=== PATIENT | female | born 1950 | race Caucasian/White ===

== ENCOUNTER 2019-08-16 10:57 | Day surgery (SDC) | payer MEDICARE, OTHER, SELFPAY ==
[2019-08-15 14:43] VITALS: BMI 34.8
--- NOTE | 2019-08-16 11:36 | ECG_ITS ---
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 [id number]
[2019-08-16 11:48] VITALS: BP 135/112; PULSE 94; RESP 20; TEMP 37.2; O2SAT 99
--- NOTE | 2019-08-16 11:49 | P.PN_ITS ---
Pre-Anesthetic Assessment Pre-Anesthetic Assessment: Height/Weight: Height 1.78 m Weight 110.223 kg Proposed Procedure: Operation Date: 08/16/19 12:00 Proposed Procedures p Cardioversion(Not Applicable) - Brian Santos MD Was Beta Fidel taken within 24 hours: Yes Last Intake: 09:00 Social: Social History: No alcohol and No tobacco Exam: Pre-Anes Outpt Exam: alert, oriented x 3, clear to auscultation bilaterally and regular rate & rhythm Airway: Submandibular: WNL Cervical ROM: WNL MP: 1 Dentition: Full History/ROS: No significant complaints Pulmonary: Pulmonary: SOB CV/HEM: CV/HEM: Afib, CHF and HTN : : Chronic renal Insufficiency Hepatic: Hepatic: None reported GI: GI: GERD (controlled) Metabolic: Metabolic: Hyperlipidemia Musc/skel: Musc/skel: OA/DJD Neuropsych: Neuropsych: None reported Anesthetic Plan: ASA status: III Anesthesia: MAC Risk of > 500 ml blood loss (7ml/kg in children): No PFSH Anesthesia PFSH: Social History Smoking and tobacco status: never smoked Alcohol intake: never Household members: spouse Marital status: Current gender identity: Female Isabel/Oriental [employer]: Other Data Anesthesia Cardiac Studies: No Data to Display
--- NOTE | 2019-08-16 11:57 | SUR.PREOP ---
12 lead EKG completed still showing A_Fib RVR
[2019-08-16] MEDS: sodium chloride 0.9% 1,000 ML 30 ML IV (12:11)
[2019-08-16 12:45] VITALS: BP 120/94; PULSE 91; RESP 18; TEMP 37.2; O2SAT 99
--- NOTE | 2019-08-16 12:48 | ANE.PACU ---
 Inpatient post-anesthesia follow up: Airway intact: Yes Vital signs: Temperature 99.0 F Pulse Rate [Right] 94 Respiratory Rate 20 Blood Pressure [Le ft Arm] 135/112 Pulse Oximetry 99 Oxygen Delivery Me thod Room Air Oxygen Flow Rate Fraction of Inspir ed Oxygen Hydration adequate: Yes Nausea and vomiting: No Pain level: 1 Mental status: Baseline
--- NOTE | 2019-08-16 12:59 | PM.PROC ---
 Procedure Note: Date of procedure: 08/16/19 Pre-procedure diagnosis: Atrial fibrillation Post-procedure diagnosis: same Procedure: Vilma has congenital heart disease and is had bypass surgery. She has struggled with recurrent atrial fibrillation. Multiple antiarrhythmics have been used to attempt to maintain sinus rhythm and have failed. She has had a ablation and this is also failed. She is very symptomatic. She is still on Betapace. We have had to adjust her beta-[place] upward to decrease her heart rate. She wanted to try cardioversion again to see if she could reestablish and maintain sinus rhythm. She was brought in electively today for cardioversion. Patient was monitored with oxygen saturation and EKG monitoring continuously. Anesthesiology was consulted for sedation. Once adequate anesthesia was secured, the patient was cardioverted once using 150 J with a biphasic machine. This converted her to sinus rhythm. At the end of the procedure she was in sinus rhythm with very frequent PACs. There were no complications. Patient has been advised to continue the medications as currently prescribed. She has an appointment with electrophysiology at the end of the month. She also has an appointment with us thereafter which she will keep. No driving a vehicle today. Otherwise activity is ad sergio. 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
[2019-08-16 13:00] VITALS: BP 126/90; PULSE 87; RESP 18; O2SAT 99
[2019-08-16 13:15] VITALS: BP 123/81; PULSE 88; RESP 18; O2SAT 98
== END 2019-08-16 14:15 | disposition home or self-care (01) ==
PROVIDERS: Family Provider Family Medicine; PCP Family Medicine; Visit Provider Internal Medicine Cardiovascular Disease
PROC: 5A2204Z Restoration of Cardiac Rhythm, Single (ICD-10-PCS; principal; 2019-08-16 12:00)
DX: I48.91 Unspecified atrial fibrillation (principal)
CPT/HCPCS: 36415; 92960; 93005; J2001; J2704; J7030

== ENCOUNTER 2019-09-05 10:35 | Outpatient (CLI) | payer MEDICARE, OTHER, SELFPAY ==
--- NOTE | 2019-09-05 | US_ITS ---
WS: [id number] RENAL ULTRASOUND HISTORY: ELEVATED SERUM CREATININE COMPARISON: 11/30/2018 and 02/28/2019 TECHNIQUE: 2-D and color Doppler imaging of the kidney submitted. Right kidney: 9.7 cm x 4.4 cm x 4.2 cm. Complex cyst centered in the central renal pelvis measuring 2.0 x 1.8 cm. There is a small septation or calcification present. Similar to the prior examination. No obstruction or solid mass. Left kidney: 9.2 cm x 4.6 cm x 3.8 cm. Normal echogenicity with no hydronephrosis or mass. Aorta: Normal. Urinary Bladder: Normal distention. US/US renal BI* [id number] IMPRESSION: Stable complex cyst central RIGHT kidney. No change since 11/30/2018. Recommend annual screening ultrasound.
== END 2019-09-05 10:36 | disposition home or self-care (01) ==
LOC: RADOUTREAD 12:00
PROVIDERS: Family Provider Family Medicine; PCP Family Medicine; Visit Provider Family Medicine
DX: Z76.89 Persons encountering health services in other specified circumstances (principal)

== ENCOUNTER 2019-10-16 15:56 | Outpatient (CLI) | payer MEDICARE, OTHER, SELFPAY ==
--- NOTE | 2019-10-16 16:04 | XR_ITS ---
WS: [id number] CHEST 2 VIEWS HISTORY: Shortness of breath COMPARISON: 02/04/2019. Inspiration and expiration radiographs are obtained. Lungs: Lucencies at the apices but no pneumothorax is identified. No pneumonia. Prior CABG. Cardiac size: Normal. Mediastinum/Aorta: Normal mediastinum. Bones: Normal. XR/XR chest 2V insp/exp [id number] IMPRESSION: Prior CABG. No pneumonia or pneumothorax.
== END 2019-10-16 15:57 | disposition home or self-care (01) ==
LOC: RADWPI 16:01
PROVIDERS: Family Provider Family Medicine; PCP Family Medicine; Visit Provider Internal Medicine Cardiovascular Disease
DX: R06.02 Shortness of breath (principal); Z95.1 Presence of aortocoronary bypass graft
CPT/HCPCS: 71046

== ENCOUNTER 2019-10-23 15:02 | Outpatient (CLI) | payer MEDICARE, OTHER, SELFPAY ==
--- NOTE | 2019-10-23 15:45 | USCV_ITS ---
Vilma Charlton Age: 69 Gender: F : 1950 Exam Date: 10/23/2019 15:22 Ordering Phys: Brian Santos MD ([email or web address]) Technologist: Kathya Turk [place]am [place] [facility] [place]ication: STATUS POST AFIB ABLATION WITH PROFOUND SOB. BP: 110 / 50 HR: 65 Rhythm: Sinus Technical Quality: Adequate MEASUREMENTS (Male / Female) Normal Values 2D ECHO LV Diastolic Diameter PLAX 4.5 cm 4.2 - 5.9 / 3.9 - 5.3 cm LV Systolic Diameter PLAX 3.5 cm IVS Diastolic Thickness 1.4 cm 0.6 - 1.0 / 0.6 - 0.9 cm IVS Systolic Thickness 1.8 cm LVPW Diastolic Thickness 1.1 cm 0.6 - 1.0 / 0.6 - 0.9 cm LVPW Systolic Thickness 1.4 cm LVOT Diameter 2.0 cm LV Ejection Fraction 2D Teich 45.4 % LV Ejection Fraction MOD 2C 53.2 % LV Ejection Fraction 2C AL 56.7 % LA Diameter 4.5 cm LA Width 3.9 cm LA Height 4.3 cm RA Width 3.2 cm RA Height 3.3 cm Aorta at Sinotubular Diameter 2.8 cm M-MODE LV Diastolic Diameter MM 4.7 cm 4.2 - 5.9 / 3.9 - 5.3 cm LV Systolic Diameter MM 2.9 cm LV Ejection Fraction MM Teich 69.1 % IVS Diastolic Thickness MM 1.1 cm 0.6 - 1.0 / 0.6 - 0.9 cm IVS Systolic Thickness MM 1.6 cm LVPW Diastolic Thickness MM 1.0 cm 0.6 - 1.0 / 0.6 - 0.9 cm LVPW Systolic Thickness MM 1.4 cm Aortic Annulus Diameter 2.9 cm LA Ao Ratio MM 1.6 MV E Point Septal Separation 0.8 cm DOPPLER AV Peak Velocity 85.0 cm/s LVOT Peak Velocity 62.0 cm/s AV Area Cont Eq vti 2.0 cm squared AV Area Cont Eq pk 2.4 cm squared MV Area PHT 3.9 cm squared MV E' Velocity 81.0 cm/s TV Peak E Velocity 80.0 cm/s Right Atrial Pressure 3.0 mmHg PV Peak Velocity 110.0 cm/s RV Acceleration Time 0.1 s RV Ejection Time 0.3 s RV AcT/ET 0.3 FINDINGS Left Ventricle Right Ventricle Normal right ventricular size and systolic function. Normal right ventricular size and systolic function, Right Atrium Normal right atrial size. Left Atrium Mildly increased left atrial size. Mitral Valve Mitral valve not well visualized. No mitral valve stenosis. Trace mitral valve regurgitation. Aortic Valve Structurally normal trileaflet aortic valve. No aortic valve stenosis. No aortic valve regurgitation. Tricuspid Valve Structurally normal tricuspid valve. Tricuspid valve not well visualized. No tricuspid valve regurgitation. Pulmonic Valve Pulmonic valve not well visualized. Pericardium No thickening/calcification of the pericardium. No pericardial or pleural effusion. Aorta Normal size aortic root and proximal ascending aorta. CONCLUSIONS Normal LV function with EF 55% No valvular stenosis or regurgitation No pericardial effusion Solomon Layne MD (Electronically Signed) Final Date: 23 October 2019 16:25 S
== END 2019-10-23 15:03 | disposition home or self-care (01) ==
LOC: RAD 15:07
PROVIDERS: Family Provider Family Medicine; PCP Family Medicine; Visit Provider Internal Medicine Cardiovascular Disease
DX: I34.0 Nonrheumatic mitral (valve) insufficiency (principal); I51.7 Cardiomegaly; R06.02 Shortness of breath; Z98.890 Other specified postprocedural states
CPT/HCPCS: 93306

== ENCOUNTER 2019-12-20 08:25 | Outpatient (CLI) | payer MEDICARE, OTHER, SELFPAY ==
--- NOTE | 2019-12-20 08:32 | FL_ITS ---
WS: [id number] Fluoroscopy; sniff test. Fluoroscopy time: 0.9 minutes. Evaluate for diaphragmatic motion. There is moderate elevation of the RIGHT hemidiaphragm as compared to the LEFT by the heights of 2 ve rtebral bodies. During normal breathing the RIGHT diaphragm does not move significantly. There is nor mal excursion during inspiration and expiration of the LEFT diaphragm. During sniff test there is no movement of the RIGHT diaphragm. Normal movement of LEFT diaphragm. Sniff test is performed in both u pright and supine positioning with similar results. FL/FL sniff test [id number] IMPRESSION: Mild elevation of the RIGHT diaphragm with paralysis. There is no movement of t he RIGHT diaphragm during inspiration, expiration or sniff test.
== END 2019-12-20 08:26 | disposition home or self-care (01) ==
LOC: RAD 08:31
PROVIDERS: PCP Family Medicine; Visit Provider Internal Medicine Clinical Cardiac Electrophysiology
DX: R06.00 Dyspnea, unspecified (principal); R06.01 Orthopnea; R93.89 Abnormal findings on diagnostic imaging of other specified body structures
CPT/HCPCS: 76000

== ENCOUNTER 2020-01-03 08:06 | Outpatient (CLI) | payer MEDICARE, OTHER, SELFPAY ==
--- NOTE | 2020-01-03 13:47 | PFTS_ITS ---
Date of Study:01/03/20 Date of Dictation: MECHANICS: Forced vital capacity (FVC) is reduced. Forced expiratory volume in one second (FEV1) is reduced. FEV1/FVC is normal. FLOW VOLUME LOOP: Narrow. LUNG VOLUMES: Total lung capacity (TLC) is reduced. Residual volume (RV) is reduced. DIFFUSING CAPACITY FOR CARBON MONOXIDE: Moderately reduced. INTERPRETATION: The pulmonary function tests are consistent with moderately severe restriction. Total lung capacity is reduced. Gas exchange (DLCO) is moderately reduced. MTDD
== END 2020-01-03 08:07 | disposition home or self-care (01) ==
LOC: RT 08:09
PROVIDERS: PCP Family Medicine; Visit Provider Internal Medicine Critical Care Medicine
DX: R06.02 Shortness of breath (principal)
CPT/HCPCS: 94010; 94726; 94729

== ENCOUNTER 2020-01-30 20:00 | Outpatient (CLI) | payer MEDICARE, OTHER, SELFPAY | END 2020-01-30 20:01 | disposition home or self-care (01) | LOC: SLEEP 01-31 09:27 | PROVIDERS: PCP Family Medicine; Visit Provider Internal Medicine Critical Care Medicine | DX: G47.33 Obstructive sleep apnea (adult) (pediatric) | CPT/HCPCS: 95810 ==

== ENCOUNTER 2020-02-19 15:39 | Outpatient (CLI) | payer MEDICARE, OTHER, SELFPAY ==
--- NOTE | 2020-02-19 16:08 | MR_ITS ---
WS: [id number] MRI CERVICAL SPINE NONCONTRAST TECHNIQUE: Sagittal T1, T2 and STIR imaging. Axial T2, gradient, and fiesta imaging. CLINICAL INFORMATION: CERVICAL RADICULOPATHY FINDINGS: Straightening of the normal cervical lordosis. Slight anterolisthesis C4 on C5. Mild disc bulging C4- C5 C5-C6 and C6-C7. Cord signal is normal. Normal prevertebral soft tissues. C2-C3: Normal. C3-C4: Mild disc bulging with slight effacement of ventral thecal sac. Moderate left facet arthropath y. Mild left and no significant right foraminal narrowing. C4-C5: Slight anterolisthesis C4 on C5. Right pericentral disc osteophyte protrusion with slight cont act of the cervical cord. Mild bilateral bony foraminal narrowing. Moderate right facet arthropathy. C5-C6: Disc osteophyte complex with endplate ridging. Slight contact of the cervical cord with mild c entral canal stenosis. Mild left foraminal narrowing. Moderate facet arthropathy. C6-C7: Mild disc osteophyte complex. Slight effacement of ventral thecal sac. Mild to moderate left a nd no significant right foraminal narrowing. C7-T1: Normal. Edema in the articulating facets at right C4-C5 and left C3-C4 likely degenerative. Visualized brain stem structures: Normal. Prevertebral soft tissues: Normal. MR/MR cervical spin wo con* [id number] IMPRESSION: 1. Straightening of the normal cervical lordosis with anterolisthesis C4 on C5 measuring 2 mm. 2. No high-grade central canal stenosis. Cord signal is normal. 3. Mild central canal stenosis C4-C5 C5-C6 and C6-C7 due to disc osteophyte co mplexes. 4. Multilevel moderate bony foraminal narrowing worse at right C4-C5, left C5- C6, and left C6-C7.
== END 2020-02-19 15:40 | disposition home or self-care (01) ==
LOC: RADSHAW 15:45
PROVIDERS: PCP Family Medicine; Visit Provider Internal Medicine Pulmonary Disease
DX: M54.12 Radiculopathy, cervical region (principal); J98.6 Disorders of diaphragm; M48.02 Spinal stenosis, cervical region; M25.78 Osteophyte, vertebrae
CPT/HCPCS: 72141

== ENCOUNTER 2020-03-05 20:00 | Outpatient (CLI) | payer MEDICARE, OTHER, SELFPAY | END 2020-03-05 20:01 | disposition home or self-care (01) | LOC: SLEEP 03-06 10:05 | PROVIDERS: PCP Family Medicine; Visit Provider Internal Medicine Critical Care Medicine | DX: G47.33 Obstructive sleep apnea (adult) (pediatric) (principal) | CPT/HCPCS: 95811 ==

== ENCOUNTER 2020-05-25 13:00 | Outpatient (CLI) | payer MEDICARE, OTHER, SELFPAY ==
[2020-05-25 15:36] LABS: Basophils % 0.5 %; Eosinophils # 0.4 10^3/uL (0.0-0.8); Eosinophils % 6.8 %; Hematocrit 46.5 % (37.0-47.0); Lymphocytes # 1.5 10^3/uL (0.8-4.8); Lymphocytes % 26.7 %; Mean Corpuscular HGB Conc 30.1 g/dL (30.0-36.0); Mean Corpuscular Hemoglobin 28.2 pg (28.0-34.0); Mean Corpuscular Volume 93.6 fL (81-99); Mean Platelet Volume 10.6 fL (7.4-10.4); Monocytes # 0.5 10^3/uL (0.2-0.9); Monocytes % 9.3 %; Neutrophils # 3.09 10^3/uL (1.8-7.7); Neutrophils % 56.5 %; Nucleated Red Blood Cells % 0 %; Platelet Count 265 10^3/cmm (130-400); Red Blood Count 4.97 10^6/uL (4.1-5.3); Red Cell Distribution Width 14.5 % (12.1-15.1); White Blood Count 5.5 10^3/uL (4.0-10.0)
[2020-05-25 16:40] LABS: LAB Peripheral Smear Sent for Review
[2020-05-25 17:01] LABS: Erythrocyte Sedimentation Rate 13 mm/hr (0-15)
--- NOTE | 2020-05-25 19:37 | ONC CON_ITS ---
Dr. Horner New Patient Note Patient: Vilma Charlton Unit #: [id number]: 1950 Dicatated By: Garcia Horner M.D.Date of Visit: May 25, 2020 Onc MED New Patient/Consult Referring Physician: Dr. Boni Clemente M.D. Chief Complaint: Small lymphocytic lymphoma. 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 She has a history of congenital heart disease (Foklh-Khxxcve-Hwamv syndrome) for which she underwent a coronary artery surgical bypass procedure in 2004. She has associated atrial fibrillation and diastolic congestive heart failure. She has had two cardiac ablation procedures, the most recent of which was in October 2019. She also has had chronic sinusitis, followed by Dr. Theo Jaramillo in [place]. She has had multiple prior nasal endoscopies and irrigation procedures. Her recent evaluation included CT of the sinuses on 03/11/2020. It showed evidence of prior endoscopic sinus surgery with bilateral antrostomies, ethmoidectomies, and partial resection. There was noted to be persistent mucosal thickening within the residual ethmoid air cells, right sphenoid sinus, and left maxillary antrum. There was ostial neogenesis of the left maxillary sinus prieto and there was mild thickening of the residual left frontal sinus. There was no evidence of aggressive osseous destruction. With those findings, on 05/01/2020 she underwent left revision endoscopic maxillary antrostomy with debridement, left balloon frontal sinuplasty, and right endoscopic sphenoidotomy with debridement. The operative note does not describe any unusual gross appearance of the sinus mucosa. Pathology of the left frontal and right sphenoid contents showed sheets of small lymphocytes surrounding benign sinonasal glands. The sheets of atypical small B cells were noted to coexpress CD20, CD21, CD5, and BCL-2. There was a weak partial positivity with BL 6 and CD43. CD23, cyclin D1, and CD10 were negative. The B cells showed weak kappa positivity. 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 She has not been feeling good generally. 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 It has been significant enough to limit her activity. However, her clinical course also was complicated by development of COVID-19 virus infection, from which she recently has recovered. In addition, she was recently confirmed to have obstructive sleep apnea, for which she has started on CPAP. Her ECOG score is 1. She has good appetite. She says her weight is down about 5 pounds. She had fever with the COVID-19 infection, but none since then. She has not been having night sweating. Her sinusitis symptoms have improved since the surgery, though she also recently just got off antibiotic therapy. She has a little bit of a morning cough. She has not had chest pain. She has been having episodes of tachycardia. Her acid reflux is adequately managed with medication. She does report having intermittent diarrhea or constipation. Bladder function has been okay. She has arthritis pain in her neck and back. She had been having headache, but that recently got better. She gets dizzy if she moves her head too fast. She has a little bit of numbness/tingling in her feet. She reports that she bruises easily since she has been on Eliquis. Past Medical History: Her medical history includes anxiety, atrial fibrillation, Qgsnl-Dztayfg-Jwcwa syndrome, COVID-19 virus infection, degenerative arthritis, diastolic congestive heart failure, gastroesophageal reflux disease, hyperlipidemia, hypertension, hypothyroidism, and obstructive sleep apnea. Past Surgical History: She underwent left revision endoscopic maxillary antrostomy with debridement, left balloon frontal sinuplasty, and right endoscopic sphenoidotomy with debridement on 05/01/2020. Her other surgical/procedural history consists of bilateral salpingo-oophorectomy, bilateral total hip arthroplasty, bilateral total knee arthroplasty, cardiac ablation procedure x 2, coronary artery bypass, esophagus dilation esophagoscopy, gastric bypass, lateral knee release, tonsillectomy, and hysterectomy in 1989. Medications: Ambien 1 Tablet (of 5 mg) Oral at bedtime, Aspirin 1 Tablet (of 81 mg) Tablet, enteric coated Oral daily, Biotin 1 Tablet Oral daily, Colace 1 Capsule Oral daily, Eliquis 1 Tablet (of 5 mg) Oral b.i.d., Furosemide 1 Tablet (of 40 mg) Oral daily, Protonix 1 Tablet (of 20 mg) Tablet, enteric coated Oral daily, Sotalol HCl 1 Tablet (of 40 mg) Oral b.i.d., Vitamin D3 1 Tablet Oral daily Allergies: Ibuprofen, Levaquin, and traMADol HCl. Social History: Ms. Charlton is . She is a non-smoker. She does not drink alcohol. Family History: Father at age 68 with infection after coronary intervention. Mother of pneumonia at age 75. A half brother age 56 with complications of diabetes. Review Of Symptoms: Constitutional - She has generally been feeling lousy. Her energy is not great. She is able to do light house work. Her appetite is good and she reports her weight is down about 5 pounds. No fever, night sweats, or hot flashes. ECOG score is 1, Eyes - No change in vision, ENMT - No hearing loss or tinnitus. She has chronic sinus congestion/drainage, though recently it has been better. No mouth sores. She has occasional sore throat. No difficulty swallowing, Hematologic/Lymphatic - She bruises easily, Respiratory - She gets short of breath very easily. No cough. No pleuritic pain or hemoptysis, Cardiovascular - No angina pain. No palpitations, Gastrointestinal - No nausea or vomiting. No heartburn or acid reflux. She has been having intermittent diarrhea or constipation. No blood in the stool or black stools, Genitourinary (F) - No dysuria or hematuria. No urinary frequency. No urgency or incontinence, Musculoskeletal - She has arthritis pain in her back and neck, Integumentary - No skin complications, Neurologic - She has had a persistent headache but it seems to be improved today. No dizziness. She has some numbness and tingling in her feet. No other focal neurologic symptoms, Psychiatric - No anxiety or depression. She takes Ambien for sleep. She is on CPAP. Vital Signs: Performed on May 25, 2020 13:45: 0, 34.38 (HIGH), 2.25 sq.m, 70.00 in, 98 %, 68 /min, 20 /min, 131/70 mm(hg), 97.4 F (LOW), and 239.6 lbs (HIGH). Physical Examination: Constitutional - She looks pretty good generally, Eyes - Sclerae nonicteric. Conjunctivae clear, ENMT - No lesions noted in the oral cavity, Neck - No mass or thyromegaly, Hematologic/Lymphatic - No cervical, clavicular, or axillary adenopathy, Respiratory - Lungs are clear. She has good air movement bilaterally, Cardiovascular - Heart rhythm is regular. There is a I/ systolic murmur. There is no gallop or rub noted, Abdomen - Soft and non-tender. Liver and spleen are not enlarged. There is no abdominal mass or ascites noted and there is no inguinal adenopathy, Back/Spine - No spine or CVA tenderness noted, Extremities - No edema. Dorsalis pedis pulses are palpable bilaterally, Integumentary - No rashes. No suspicious skin lesions noted, Neurologic - No focal neurologic deficits noted. Impression: 1. 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 It is uncertain to what extent this may be symptomatic. Staging is incomplete. 2. She underwent left revision endoscopic maxillary antrostomy with debridement, left balloon frontal sinuplasty, and right endoscopic sphenoidotomy with debridement on 05/01/2020. 3. She has underlying chronic sinusitis. Her other medical illnesses include: 4. 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 5. Atrial fibrillation. 6. Diastolic congestive heart failure. 7. Hypertension. 8. Hyperlipidemia. 9. GERD. 10. Hypothyroidism. 11. Degenerative arthritis. 12. Obstructive sleep apnea. 13. Recent COVID-19 infection. Plan: The CT findings, operative findings, and pathology results were reviewed with the patient and her . We discussed the clinical implications. 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 She has not completed the staging evaluation, so the extent of her disease is unknown. It is also known as to what extent this may be contributing to her sinus symptoms. We discussed the fact this disease is generally followed with observation/expectant management when it is in earlier stages and not overtly symptomatic. If and when it is symptomatic, there are effective treatments, though generally not curable. At least initially I will obtain additional laboratory studies including CBC, comprehensive metabolic profile, sed rate, and LDH level. I also will review the blood smear and I will request a whole blood flow cytometry for lymphoma markers. She will be scheduled for staging PET/CT. I will plan to discuss further management when those results are available. Signed By: Garcia Horner M.D. <<Signature on File>>
[2020-05-26 04:36] LABS: Alanine Aminotransferase 17 U/L (0-33); Albumin Level 4.1 g/dL (3.5-5.2); Alkaline Phosphatase 97 IU/L (35-105); Anion Gap 14.9 (5-19); Aspartate Amino Transferase 24 U/L (0-32); Blood Urea Nitrogen 31 mg/dL (8-23); Calcium 9.4 mg/dL (8.5-10.5); Carbon Dioxide 26 mmol/L (22-29); Chloride 106 mmol/L (98-107); Globulin 2.8 g/dL (1.3-4.6); Glomerular Filtration Rate 40.9 mL/min (90-130); Glucose 94 mg/dL (65-115); Lactate Dehydrogenase 261 U/L (135-214); Osmolality Calculated 302 mOsm/kg (285-295); Potassium 3.9 mmol/L (3.5-5.1); Sodium 143 mmol/L (136-145); Total Bilirubin 0.5 mg/dL (0.15-1.2); Total Protein 6.9 g/dL (6.6-8.7)
== END 2020-05-25 13:01 | disposition home or self-care (01) ==
LOC: ONCMED 13:03
PROVIDERS: PCP Family Medicine; Visit Provider Internal Medicine Medical Oncology
DX: C83.09 Small cell B-cell lymphoma, extranodal and solid organ sites (principal); J32.9 Chronic sinusitis, unspecified; Q24.5 Malformation of coronary vessels; I48.91 Unspecified atrial fibrillation; I50.30 Unspecified diastolic (congestive) heart failure; I11.0 Hypertensive heart disease with heart failure; E78.5 Hyperlipidemia, unspecified; K21.9 Gastro-esophageal reflux disease without esophagitis; E03.9 Hypothyroidism, unspecified; M19.90 Unspecified osteoarthritis, unspecified site; G47.33 Obstructive sleep apnea (adult) (pediatric); Z98.890 Other specified postprocedural states; Z95.1 Presence of aortocoronary bypass graft; Z79.01 Long term (current) use of anticoagulants
CPT/HCPCS: 36415; 80053; 83615; 85025; 85651; 99205

== ENCOUNTER 2020-06-02 07:50 | Outpatient (CLI) | payer MEDICARE, OTHER, SELFPAY ==
--- NOTE | 2020-06-03 07:53 | ONC FU_ITS ---
Dr. Horner Patient Follow-Up Note Patient: Vilma Charlton Unit #: [id number]: 1950 Dicatated By: Garcia Horner M.D.Date of Visit:Jun 02, 2020 Onc Med Follow-up/Prog Note Chief Complaint: Small lymphocytic lymphoma. 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 She also has had chronic sinusitis, followed by Dr. Theo Jaramillo in [place]. She has had multiple prior nasal endoscopies and irrigation procedures. Her recent evaluation included CT of the sinuses on 03/11/2020. It showed evidence of prior endoscopic sinus surgery with bilateral antrostomies, ethmoidectomies, and partial resection. There was noted to be persistent mucosal thickening within the residual ethmoid air cells, right sphenoid sinus, and left maxillary antrum. There was ostial neogenesis of the left maxillary sinus prieto and there was mild thickening of the residual left frontal sinus. There was no evidence of aggressive osseous destruction. With those findings, on 05/01/2020 she underwent left revision endoscopic maxillary antrostomy with debridement, left balloon frontal sinuplasty, and right endoscopic sphenoidotomy with debridement. The operative note does not describe any unusual gross appearance of the sinus mucosa. Pathology of the left frontal and right sphenoid contents showed sheets of small lymphocytes surrounding benign sinonasal glands. The sheets of atypical small B cells were noted to coexpress CD20, CD21, CD5, and BCL-2. There was a weak partial positivity with BL 6 and CD43. CD23, cyclin D1, and CD10 were negative. The B cells showed weak kappa positivity. 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 Her medical history is otherwise significant for congenital heart disease (Bfqsu-Oibisxs-Ihzlh syndrome) for which she underwent a coronary artery surgical bypass procedure in 2004. She has associated atrial fibrillation and diastolic congestive heart failure. She has had two cardiac ablation procedures, the most recent of which was in October 2019. Her other medical illnesses include hypertension, hyperlipidemia, GERD, hypothyroidism, degenerative arthritis, and obstructive sleep apnea. Her other surgeries include bilateral total hip arthroplasty, bilateral total knee arthroplasty, gastric bypass, and hysterectomy. She is a non-smoker. I had seen her initially on 05/25/2020. Her laboratory studies at that time included CBC showing hemoglobin normal at 14.0 g, white blood cell count 5500 with differential showing 56% neutrophils, 26% lymphocytes, 9% monocytes, and 6% eosinophils. The platelet count was normal at 265,000. Sed rate was normal at 13 mm/hour. Comprehensive metabolic profile showed elevated BUN and creatinine at 31 and 1.3 mg/dL, similar to prior studies. Liver enzymes were normal. The LDH was mildly elevated at 261/214 U/L. A whole blood flow cytometry was requested, but that result has not yet been reported. She was then scheduled for further evaluation with PET/CT on 05/30/2020, and I had also ordered a repeat culture of her sinus drainage. The PET/CT showed just minimal inflammatory appearing activity in the mucosa of the left maxillary sinus. There were no other sites of abnormal activity in the sinuses and there were no findings to indicate additional extranodal disease or malignant lymphadenopathy. The sinus culture grew Serratia marcescens which was sensitive to quinolone and Bactrim but resistant to amoxicillin/clavulanate and to tetracycline. She returns today to review the above results and to discuss further management of the lymphoma. Medications: Ambien 1 Tablet (of 5 mg) Oral at bedtime, Aspirin 1 Tablet (of 81 mg) Tablet, enteric coated Oral daily, Biotin 1 Tablet Oral daily, Colace 1 Capsule Oral daily, Eliquis 1 Tablet (of 5 mg) Oral b.i.d., Furosemide 1 Tablet (of 40 mg) Oral daily, Protonix 1 Tablet (of 20 mg) Tablet, enteric coated Oral daily, Sotalol HCl 1 Tablet (of 40 mg) Oral b.i.d., Vitamin D3 1 Tablet Oral daily Allergies: Ibuprofen, Levaquin, and traMADol HCl. Vital Signs: Performed on Jun 02, 2020 08:26 Height - 70.00 in Weight - 237.8 lbs (LOW) BSA - 2.25 sq.m BMI - 34.12 (HIGH) Temperature - 98.2 F (LOW) Pulse - 74 /min Respiration - 22 /min BP - 108/51 mm(hg) O2 Sat - 97 % Pain - 0 Impression: 1. 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 It is uncertain to what extent this may be symptomatic. Staging is incomplete. 2. She underwent left revision endoscopic maxillary antrostomy with debridement, left balloon frontal sinuplasty, and right endoscopic sphenoidotomy with debridement on 05/01/2020. 3. She has underlying chronic sinusitis. Her other medical illnesses include: 4. Tfall-Fqshiue-Zuqwo syndrome with previous coronary bypass procedure. 5. Atrial fibrillation. 6. Diastolic congestive heart failure. 7. Hypertension. 8. Hyperlipidemia. 9. GERD. 10. Hypothyroidism. 11. Degenerative arthritis. 12. Obstructive sleep apnea. 13. Recent COVID-19 infection. Her further evaluation thus far has included normal CBC and sed rate and mildly elevated LDH level. A whole blood flow cytometry was requested, that result has not been reported. Her staging PET/CT showed only minimal inflammatory activity in the left maxillary sinus mucosa. There were no other sites of abnormal uptake noted. Her sinus culture grew Serratia marcescens which was sensitive to quinolone and to Bactrim, but resistant to Augmentin and to tetracycline. Plan: The results of the laboratory studies, culture results, and PET/CT findings were reviewed with the patient. We discussed the clinical implications. At this point it is uncertain to what extent the lymphoma may be symptomatic and to what extent, if any, she may benefit with treatment. In the setting of symptomatic, localized disease she could potentially benefit with radiation. If it is not symptomatic or clinically evident, I think you would be best to just monitor her with close observation. I will want to discuss this with Dr. Jaramillo, but at least initially she will be given antibiotic therapy for the sinus infection and we can then reassess to try and determine if the lymphoma is clinically significant. Her antibiotic therapy may be problematic, as she does have reported allergy to both Bactrim and quinolone. However, by her recollection, the quinolone allergy was limited to some facial erythema, and she was not really certain that the antibiotic had caused it. As such, she is willing to try a course of therapy with ciprofloxacin. If she is able to tolerate it I will have her continue it at 750 mg twice daily for 2 weeks. I will then arrange for repeat sinus CT scan and for follow-up with Dr. Jaramillo. Bjbe-zy-flhj time with patient was approximately 25 minutes, greater than 50% spent in counseling/discussion. Signed By: Garcia Horner M.D. <<Signature on File>>
== END 2020-06-02 07:51 | disposition home or self-care (01) ==
LOC: ONCMED 07:51
PROVIDERS: PCP Family Medicine; Visit Provider Internal Medicine Medical Oncology
DX: C83.09 Small cell B-cell lymphoma, extranodal and solid organ sites (principal); J32.9 Chronic sinusitis, unspecified; B96.89 Other specified bacterial agents as the cause of diseases classified elsewhere; Z16.29 Resistance to other single specified antibiotic; Z16.39 Resistance to other specified antimicrobial drug; Q24.5 Malformation of coronary vessels; I48.91 Unspecified atrial fibrillation; I50.30 Unspecified diastolic (congestive) heart failure; I11.0 Hypertensive heart disease with heart failure; E78.5 Hyperlipidemia, unspecified; K21.9 Gastro-esophageal reflux disease without esophagitis; E03.9 Hypothyroidism, unspecified; M19.90 Unspecified osteoarthritis, unspecified site; G47.33 Obstructive sleep apnea (adult) (pediatric); Z98.890 Other specified postprocedural states; Z95.1 Presence of aortocoronary bypass graft; Z79.01 Long term (current) use of anticoagulants; Z86.19 Personal history of other infectious and parasitic diseases
CPT/HCPCS: 87077; 87186; 99214

== ENCOUNTER 2020-06-11 13:17 | Outpatient (CLI) | payer MEDICARE, OTHER, SELFPAY | END 2020-06-11 13:18 | disposition home or self-care (01) | PROVIDERS: PCP Family Medicine; Visit Provider Internal Medicine Medical Oncology | DX: C83.09 Small cell B-cell lymphoma, extranodal and solid organ sites (principal) | CPT/HCPCS: 36415 ==

== ENCOUNTER 2020-08-06 10:46 | Outpatient (CLI) | payer MEDICARE, OTHER, SELFPAY ==
--- NOTE | 2020-08-06 10:53 | FL_ITS ---
WS: [id number] Exam: FL sniff test [id number] Date/Time of Exam: 08/06/2020 11:00 AM Reason For Exam: DISORDERS OF DIAPHRAGM Compared to prior study 12/20/2019. The right and left diaphragms move symmetrically in unison during inspiration, expiration and sniff t est. Previously noted right diaphragmatic paralysis appears to have resolved. FL/FL sniff test [id number] IMPRESSION: 1. Normal bilateral diaphragmatic motion during inspiration, expiration and sni ff test.
== END 2020-08-06 10:47 | disposition home or self-care (01) ==
PROVIDERS: PCP Family Medicine; Visit Provider Internal Medicine Clinical Cardiac Electrophysiology
DX: J98.6 Disorders of diaphragm (principal)
CPT/HCPCS: 76000

== ENCOUNTER 2020-12-15 11:14 | Outpatient (CLI) | payer MEDICARE, OTHER, SELFPAY ==
--- NOTE | 2020-12-15 11:29 | CT_ITS ---
WS: [id number] CT SINUSES TECHNIQUE: Contrast-enhanced CT of the paranasal sinuses with coronal and sagittal reformatted images . CLINICAL INFORMATION: LYMPHOMA COMPARISON: None. DLP: 481.[address] scans at [facility] use at least one of these dose optimization techniques: automat ed exposure control; mA and/or kV adjustment per patient size (includes targeted exams where dose is matched to clinical indication); or iterative reconstruction. FINDINGS: Mild nasal septal deviation right to left measuring 3 to 4 mm. Prior postoperative changes bilateral maxillary antrostomies with uncinectomies. Maxillary ostia are patent. Tiny amount of fluid in the ma xillary sinuses bilaterally. Small amount of fluid and mucosal thickening in the left ethmoid air theodore ls and left frontal ethmoidal recess. Hypoplastic frontal sinuses. Sphenoid sinuses are well aerated. Sphenoid ostia are widely patent with postoperative changes. Mastoid air cells are well aerated. Normal parapharyngeal fat. Normal posterior nasopharynx. Partially visualized intracranial contents a re normal. CT/CT sinus w con [id number] IMPRESSION: 1. Mild nasal septal deviation measuring 3 to 4 mm. 2. Prior postoperative bilateral maxillary antrostomies with uncinectomies and ethmoidectomies. Sphenoid sinus osteotomies 3. Maxillary ostia are widely patent. Small amount of fluid in the maxillary s inuses consistent with mild sinusitis. 4. Mild mucosal thickening with a small amount of fluid in the left frontal et hmoid recess and ethmoid air cells. 5. Mastoid air cells are well aerated.
[2020-12-15 13:40] LABS: Blood Urea Nitrogen 25 mg/dL (8-23); Glomerular Filtration Rate 49.4 mL/min (90-130)
[2020-12-15] MEDS: iodixanol 320 mg/mL 100mL Btl IV (13:58)
== END 2020-12-15 11:15 | disposition home or self-care (01) ==
LOC: RAD 11:19
PROVIDERS: PCP Family Medicine; Visit Provider Internal Medicine Medical Oncology
DX: C83.09 Small cell B-cell lymphoma, extranodal and solid organ sites (principal); J34.2 Deviated nasal septum
CPT/HCPCS: 36415; 70487; 82565; 84520

== ENCOUNTER 2020-12-30 13:12 | Outpatient (CLI) | payer MEDICARE, OTHER, SELFPAY ==
[2020-12-30 13:33] LABS: Basophils % 0.7 %; Eosinophils # 0.4 10^3/uL (0.0-0.8); Eosinophils % 6.6 %; Hemoglobin 12.8 g/dL (11.5-15.3); Lymphocytes # 1.7 10^3/uL (0.8-4.8); Lymphocytes % 29.4 %; Mean Corpuscular HGB Conc 30.5 g/dL (30.0-36.0); Mean Corpuscular Hemoglobin 26.8 pg (28.0-34.0); Mean Corpuscular Volume 87.9 fL (81-99); Mean Platelet Volume 10.5 fL (7.4-10.4); Monocytes # 0.6 10^3/uL (0.2-0.9); Monocytes % 10.3 %; Neutrophils # 3.01 10^3/uL (1.8-7.7); Neutrophils % 52.7 %; Nucleated Red Blood Cells % 0 %; Platelet Count 225 10^3/cmm (130-400); Red Blood Count 4.78 10^6/uL (4.1-5.3); Red Cell Distribution Width 14.4 % (12.1-15.1); White Blood Count 5.7 10^3/uL (4.0-10.0)
[2020-12-30 13:58] LABS: Alanine Aminotransferase 19 U/L (0-33); Albumin Level 4.1 g/dL (3.5-5.2); Alkaline Phosphatase 108 IU/L (35-105); Aspartate Amino Transferase 25 U/L (0-32); Blood Urea Nitrogen 30 mg/dL (8-23); Calcium 8.6 mg/dL (8.5-10.5); Carbon Dioxide 29 mmol/L (22-29); Chloride 105 mmol/L (98-107); Globulin 2.4 g/dL (1.3-4.6); Glomerular Filtration Rate 44.7 mL/min (90-130); Glucose 106 mg/dL (65-115); Lactate Dehydrogenase 278 U/L (135-214); Osmolality Calculated 299 mOsm/kg (285-295); Sodium 141 mmol/L (136-145); Total Bilirubin 0.6 mg/dL (0.15-1.2); Total Protein 6.5 g/dL (6.6-8.7)
--- NOTE | 2021-01-02 19:19 | ONC FU_ITS ---
Dr. Horner Patient Follow-Up Note Patient: Vlima Charlton Unit #: [id number]: 1950 Dicatated By: Garcia Horner M.D.Date of Visit:December 30, 2020 Onc Med Follow-up/Prog Note Chief Complaint: Small lymphocytic lymphoma. 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 She also has had chronic sinusitis, followed by Dr. Theo Jaramillo in [place]. She has had multiple prior nasal endoscopies and irrigation procedures. Her recent evaluation included CT of the sinuses on 03/11/2020. It showed evidence of prior endoscopic sinus surgery with bilateral antrostomies, ethmoidectomies, and partial resection. There was noted to be persistent mucosal thickening within the residual ethmoid air cells, right sphenoid sinus, and left maxillary antrum. There was ostial neogenesis of the left maxillary sinus prieto and there was mild thickening of the residual left frontal sinus. There was no evidence of aggressive osseous destruction. With those findings, on 05/01/2020 she underwent left revision endoscopic maxillary antrostomy with debridement, left balloon frontal sinuplasty, and right endoscopic sphenoidotomy with debridement. The operative note does not describe any unusual gross appearance of the sinus mucosa. Pathology of the left frontal and right sphenoid contents showed sheets of small lymphocytes surrounding benign sinonasal glands. The sheets of atypical small B cells were noted to coexpress CD20, CD21, CD5, and BCL-2. There was a weak partial positivity with BL 6 and CD43. CD23, cyclin D1, and CD10 were negative. The B cells showed weak kappa positivity. 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 I had seen her initially on 05/25/2020. Her laboratory studies at that time included CBC showing hemoglobin normal at 14.0 g, white blood cell count 5500 with differential showing 56% neutrophils, 26% lymphocytes, 9% monocytes, and 6% eosinophils. The platelet count was normal at 265,000. Sed rate was normal at 13 mm/hour. Comprehensive metabolic profile showed elevated BUN and creatinine at 31 and 1.3 mg/dL, similar to prior studies. Liver enzymes were normal. The LDH was mildly elevated at 261/214 U/L. A whole blood flow cytometry was requested, but that result has not yet been reported. She was then scheduled for further evaluation with PET/CT on 05/30/2020, and I had also ordered a repeat culture of her sinus drainage. The PET/CT showed just minimal inflammatory appearing activity in the mucosa of the left maxillary sinus. There were no other sites of abnormal activity in the sinuses and there were no findings to indicate additional extranodal disease or malignant lymphadenopathy. The sinus culture grew Serratia marcescens which was sensitive to quinolone and Bactrim but resistant to amoxicillin/clavulanate and to tetracycline. She had reported sulfa and quinolone allergy. As such, she was referred to Dr. Esparza. She ultimately did agree to a trial of antibiotic therapy with ciprofloxacin, which she was able to tolerate at a reduced dosage. She had gradual improvement in her sinusitis symptoms. In the meantime, she had further evaluation with whole blood flow cytometry, which did show a very small population of monoclonal B cells, which was very suspicious for underlying chronic lymphocytic leukemia. As her CLL/small lymphocytic lymphoma did not appear to be symptomatic, expectant management was recommended. Her medical history is otherwise significant for congenital heart disease (Fgycf-Pemuyak-Qoebf syndrome) for which she underwent a coronary artery surgical bypass procedure in 2004. She has associated atrial fibrillation and diastolic congestive heart failure. She has had two cardiac ablation procedures, the most recent of which was in October 2019. Her other medical illnesses include hypertension, hyperlipidemia, GERD, hypothyroidism, degenerative arthritis, and obstructive sleep apnea. Her other surgeries include bilateral total hip arthroplasty, bilateral total knee arthroplasty, gastric bypass, and hysterectomy. She is a non-smoker. INTERIM HISTORY: A repeat CT of the sinuses on 12/15/2020 showed prior postoperative bilateral maxillary antrostomies with uncinectomies and ethmoidectomies. Maxillary ostia were noted to be widely patent. There is just a small amount of fluid in the maxillary sinuses consistent with mild sinusitis. There was mild mucosal thickening with a small amount of fluid in the left frontal ethmoid recess and ethmoid air cells. There was no evidence for a mass lesion. She is seen for a follow-up visit. She has been feeling much better generally. She now has only mild sinusitis symptoms, which she manages with Bactroban topically. She also has the ciprofloxacin available to take as needed. She says her energy is the same as always. She is able to do light work. ECOG score is 1. Her appetite is good. She has no fever or night sweats. She does have some hot flashes. She reports having sore throat off and on and the glands in her neck swell intermittently. She does not complain of cough and she does not have shortness of breath. She has not been having chest pain. Her atrial fibrillation is controlled. She now has an implanted loop recorder, and she is off Eliquis. She currently has no GI or complaints. She has joint pain, particularly in her hips, knees, and feet. It is no worse now than it had been. She does not complain of headache or dizziness, and she has no focal neurologic symptoms. Medications: Ambien 1 Tablet (of 5 mg) Oral at bedtime, Aspirin 1 Tablet (of 81 mg) Tablet, enteric coated Oral daily, Biotin 1 Tablet Oral daily, Colace 1 Capsule Oral daily, Furosemide 1 Tablet (of 40 mg) Oral daily, Metoprolol Succinate ER (50 mg) Tablet SR 24 HR Oral daily, Protonix 1 Tablet (of 20 mg) Tablet, enteric coated Oral daily, Vitamin D3 1 Tablet Oral daily Allergies: Ibuprofen, Levaquin, and traMADol HCl. Vital Signs: Performed on December 30, 2020 14:36 Height - 70.00 in Weight - 249 lbs (HIGH) BSA - 2.29 sq.m BMI - 35.73 (HIGH) Temperature - 97.1 F (LOW) Pulse - 75 /min Respiration - 18 /min BP - 124/76 mm(hg) O2 Sat - 93 % (LOW) Pain - 0 Fatigue - 0 Physical Examination: Constitutional - She looks pretty good generally, Eyes - Sclerae nonicteric. Conjunctivae clear, ENMT - No lesions noted in the oral cavity, Hematologic/Lymphatic - No cervical, clavicular, or axillary adenopathy, Respiratory - Lungs are clear. She has good air movement bilaterally, Cardiovascular - Heart rhythm is regular. There is a II/ systolic murmur. There is no gallop or rub noted, Abdomen - Soft. Liver and spleen are not enlarged. There is no abdominal mass or ascites noted and there is no inguinal adenopathy, Extremities - No edema, Neurologic - No focal neurologic deficits noted. Lab/Imaging: Test performed on December 30, 2020 13:20 LDH (Total) 278 U/L Sodium 141 mmol/L Potassium 4.0 mmol/L Chloride 105 mmol/L CO2 29 mmol/L Anion Gap 11.0 BUN 30 mg/dL Creatinine 1.2 mg/dL Cr Clearance (Est) 80.00 mL/min eGFR 44.7 mL/min Glucose 106 mg/dL Osmolality - Calculated 299 mOsm/kg Calcium 8.6 mg/dL Protein, Total 6.5 g/dL Albumin 4.1 g/dL Globulin 2.4 g/dL Bilirubin, Total 0.6 mg/dL ALT (SGPT) 19 U/L AST (SGOT) 25 U/L Alkaline Phosphatase 108 IU/L WBC 5.7 10 3/uL RBC 4.78 10 6/uL HGB 12.8 g/dL HCT 42.0 % MCV 87.9 fL MCH 26.8 pg MCHC 30.5 g/dL RDW 14.4 % Platelet Count 225 10 3/cmm MPV 10.5 fL Neutrophils 3.01 10 3/uL Lymphocytes 1.7 10 3/uL Monocytes 0.6 10 3/uL Eosinophils 0.4 10 3/uL Basophils 0.0 10 3/uL Neutrophil % 52.7 % Lymphocyte % 29.4 % Monocyte % 10.3 % Eosinophil % 6.6 % Basophils % 0.7 % NRBC % 0 % Problem List: 1. 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 2. She underwent left revision endoscopic maxillary antrostomy with debridement, left balloon frontal sinuplasty, and right endoscopic sphenoidotomy with debridement on 05/01/2020. 3. She has underlying chronic sinusitis. 4. Wfmuv-Zqwgkhs-Lzazt syndrome with previous coronary bypass procedure. 5. Atrial fibrillation. 6. Diastolic congestive heart failure. 7. Hypertension. 8. Hyperlipidemia. 9. GERD. 10. Hypothyroidism. 11. Degenerative arthritis. 12. Obstructive sleep apnea. 13. COVID-19 infection. 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 She had pre-existing chronic sinusitis. She underwent left maxillary antrostomy with debridement, left balloon frontal sinuplasty, and right endoscopic sphenoidotomy with debridement on 05/01/2020. Her staging PET/CT showed no other areas of involvement. Findings were limited to minimal inflammatory appearing activity in mucosa of the left maxillary sinus. Her whole blood flow cytometry did show a very small population of monoclonal B cells, suspicious for underlying chronic lymphocytic leukemia. As the CLL/small lymphocytic lymphoma did not appear to be symptomatic, expectant management was recommended. She has continued expectant management for the CLL/SLL, but in the meantime she completed antibiotic therapy with ciprofloxacin, and she has had significant improvement in her sinusitis symptoms. Her surveillance CT of the sinuses on 12/15/2020 showed only minimal inflammatory/sinusitis changes and no evidence of mass lesion. As such, she continues observation/expectant management. I will see her again in 6 months. Signed By: Garcia Horner M.D. <<Signature on File>>
== END 2020-12-30 13:13 | disposition home or self-care (01) ==
LOC: ONCMED 13:15
PROVIDERS: PCP Family Medicine; Visit Provider Internal Medicine Medical Oncology
DX: Z08 Encounter for follow-up examination after completed treatment for malignant neoplasm (principal); Z85.72 Personal history of non-Hodgkin lymphomas; J32.9 Chronic sinusitis, unspecified; I25.10 Atherosclerotic heart disease of native coronary artery without angina pectoris; Z95.5 Presence of coronary angioplasty implant and graft; I48.20 Chronic atrial fibrillation, unspecified; I50.30 Unspecified diastolic (congestive) heart failure; I10 Essential (primary) hypertension; E78.5 Hyperlipidemia, unspecified; K21.9 Gastro-esophageal reflux disease without esophagitis; E03.9 Hypothyroidism, unspecified; M19.90 Unspecified osteoarthritis, unspecified site; G47.33 Obstructive sleep apnea (adult) (pediatric); Z86.16 Personal history of COVID-19; Z79.899 Other long term (current) drug therapy
CPT/HCPCS: 80053; 83615; 85025; G0463

== ENCOUNTER 2021-06-16 09:53 | Outpatient (CLI) | payer MEDICARE, OTHER, SELFPAY ==
--- NOTE | 2021-06-16 10:27 | CT_ITS ---
WS: [id number] CT SINUSES TECHNIQUE: Contrast-enhanced CT of the paranasal sinuses with coronal and sagittal reformatted images . CLINICAL INFORMATION: SINUS LYMPHOMA history of lymphoma in the left frontal and right sphenoid sinus es. COMPARISON: December 15, 2020 DLP: 269.[address] scans at [facility] use at least one of these dose optimization techniques: automated e xposure control; mA and/or kV adjustment per patient size (includes targeted exams where dose is matc hed to clinical indication); or iterative reconstruction. FINDINGS: Mild nasal deviation right to left measuring 3 to 4 mm unchanged. Prior postoperative changes involvi ng the maxillary sinuses with bilateral maxillary antrostomies and uncinectomies. Maxillary ostia are patent. Maxillary sinuses are well aerated. Ethmoid air cells and left frontal sinus are well aerated. Hypoplastic frontal sinuses bilaterally. S phenoid sinuses and sphenoid ostia are patent. Evidence of postoperative osteotomies sphenoid ostia. Mastoid air cells well aerated. Overall improved aeration of the paranasal sinuses today compared to previous. No residual sinusitis. Normal parapharyngeal fat. Partially visualized intracranial contents unremarkable. CT/CT sinus w con [id number] IMPRESSION: 1. Prior postoperative changes bilateral maxillary antrostomies with uncinecto mies and ethmoidectomies. Sphenoid sinus osteotomies. 2. No evidence of new or progressive disease. 3. Paranasal sinuses are well aerated today. 4. Mastoid air cells are well aerated. 5. No other significant findings.
[2021-06-16 10:52] LABS: Blood Urea Nitrogen 31 mg/dL (8-23); Glomerular Filtration Rate 49.4 mL/min (90-130)
[2021-06-16] MEDS: iodixanol 320 mg/mL 100mL Btl IV (11:02)
== END 2021-06-16 09:54 | disposition home or self-care (01) ==
PROVIDERS: PCP Family Medicine; Visit Provider Internal Medicine Medical Oncology
DX: C83.09 Small cell B-cell lymphoma, extranodal and solid organ sites (principal)
CPT/HCPCS: 70487; 82565; 84520; Q9967

== ENCOUNTER 2021-06-24 13:05 | Outpatient (CLI) | payer MEDICARE, OTHER, SELFPAY ==
[2021-06-24 13:52] LABS: Basophils % 0.6 %; Eosinophils # 0.4 10^3/uL (0.0-0.8); Eosinophils % 5.8 %; Hemoglobin 13.5 g/dL (11.5-15.3); Lymphocytes # 1.9 10^3/uL (0.8-4.8); Lymphocytes % 29.6 %; Mean Corpuscular HGB Conc 30.7 g/dL (30.0-36.0); Mean Corpuscular Hemoglobin 26.5 pg (28.0-34.0); Mean Corpuscular Volume 86.4 fl (81-99); Mean Platelet Volume 10.5 fL (7.4-10.4); Monocytes # 0.5 10^3/uL (0.2-0.9); Monocytes % 7.9 %; Neutrophils # 3.65 10^3/uL (1.8-7.7); Neutrophils % 55.8 %; Nucleated Red Blood Cells % 0 %; Platelet Count 204 10^3/cmm (130-400); Red Blood Count 5.09 10^6/uL (4.1-5.3); Red Cell Distribution Width 15.1 % (12.1-15.1); White Blood Count 6.6 10^3/uL (4.0-10.0)
[2021-06-24 14:03] LABS: Alanine Aminotransferase 20 U/L (0-33); Albumin Level 4.2 g/dL (3.5-5.2); Alkaline Phosphatase 91 IU/L (35-105); Anion Gap 17.4 (5-19); Aspartate Amino Transferase 25 U/L (0-32); Blood Urea Nitrogen 34 mg/dL (8-23); Calcium 8.9 mg/dL (8.5-10.5); Carbon Dioxide 24 mmol/L (22-29); Chloride 106 mmol/L (98-107); Globulin 2.7 g/dL (1.3-4.6); Glomerular Filtration Rate 44.7 mL/min (90-130); Glucose 81 mg/dL (65-115); Lactate Dehydrogenase 317 U/L (135-214); Osmolality Calculated 303 mOsm/kg (285-295); Potassium 4.4 mmol/L (3.5-5.1); Sodium 143 mmol/L (136-145); Total Bilirubin 0.5 mg/dL (0.15-1.2); Total Protein 6.9 g/dL (6.6-8.7)
--- NOTE | 2021-06-28 06:58 | ONC FU_ITS ---
Dr. Horner Patient Follow-Up Note Patient: Vilma Charlton Unit #: [id number]: 1950 Dicatated By: Garcia Horner M.D.Date of Visit:Jun 24, 2021 Onc Med Follow-up/Prog Note Chief Complaint: Small lymphocytic lymphoma. 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 She has a history of chronic sinusitis, followed by Dr. Theo Jaramillo in [place]. She has had multiple prior nasal endoscopies and irrigation procedures. Her evaluation included CT of the sinuses on 03/11/2020. It showed evidence of prior endoscopic sinus surgery with bilateral antrostomies, ethmoidectomies, and partial resection. There was noted to be persistent mucosal thickening within the residual ethmoid air cells, right sphenoid sinus, and left maxillary antrum. There was ostial neogenesis of the left maxillary sinus prieto and there was mild thickening of the residual left frontal sinus. There was no evidence of aggressive osseous destruction. With those findings, on 05/01/2020 she underwent left revision endoscopic maxillary antrostomy with debridement, left balloon frontal sinuplasty, and right endoscopic sphenoidotomy with debridement. The operative note does not describe any unusual gross appearance of the sinus mucosa. Pathology of the left frontal and right sphenoid contents showed sheets of small lymphocytes surrounding benign sinonasal glands. The sheets of atypical small B cells were noted to coexpress CD20, CD21, CD5, and BCL-2. There was a weak partial positivity with BL 6 and CD43. CD23, cyclin D1, and CD10 were negative. The B cells showed weak kappa positivity. 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 I had seen her initially on 05/25/2020. Her laboratory studies at that time included CBC showing hemoglobin normal at 14.0 g, white blood cell count 5500 with differential showing 56% neutrophils, 26% lymphocytes, 9% monocytes, and 6% eosinophils. The platelet count was normal at 265,000. Sed rate was normal at 13 mm/hour. Comprehensive metabolic profile showed elevated BUN and creatinine at 31 and 1.3 mg/dL, similar to prior studies. Liver enzymes were normal. The LDH was mildly elevated at 261/214 U/L. A whole blood flow cytometry was requested, but that result has not yet been reported. She was then scheduled for further evaluation with PET/CT on 05/30/2020, and I had also ordered a repeat culture of her sinus drainage. The PET/CT showed just minimal inflammatory appearing activity in the mucosa of the left maxillary sinus. There were no other sites of abnormal activity in the sinuses and there were no findings to indicate additional extranodal disease or malignant lymphadenopathy. The sinus culture grew Serratia marcescens which was sensitive to quinolone and Bactrim but resistant to amoxicillin/clavulanate and to tetracycline. She had reported sulfa and quinolone allergy. As such, she was referred to Dr. Esparza. She ultimately did agree to a trial of antibiotic therapy with ciprofloxacin, which she was able to tolerate at a reduced dosage. She had gradual improvement in her sinusitis symptoms. In the meantime, she had further evaluation with whole blood flow cytometry, which did show a very small population of monoclonal B cells, suspicious for underlying chronic lymphocytic leukemia. As her CLL/small lymphocytic lymphoma did not appear to be symptomatic, expectant management was recommended. Her medical history is otherwise significant for congenital heart disease (Ytsxx-Tbjgcsj-Rvoil syndrome) for which she underwent a coronary artery surgical bypass procedure in 2004. She has associated atrial fibrillation and diastolic congestive heart failure. She has had two cardiac ablation procedures, the most recent of which was in October 2019. Her other medical illnesses include hypertension, hyperlipidemia, GERD, hypothyroidism, degenerative arthritis, and obstructive sleep apnea. Her other surgeries include bilateral total hip arthroplasty, bilateral total knee arthroplasty, gastric bypass, and hysterectomy. She is a non-smoker. INTERIM HISTORY: CT of the sinuses on 12/15/2020 showed prior postoperative bilateral maxillary antrostomies with uncinectomies and ethmoidectomies. Maxillary ostia were noted to be widely patent. There is just a small amount of fluid in the maxillary sinuses consistent with mild sinusitis. There was mild mucosal thickening with a small amount of fluid in the left frontal ethmoid recess and ethmoid air cells. There was no evidence for a mass lesion. Repeat CT of the sinuses on 06/16/2021 showed no evidence of new or progressive disease. The paranasal sinuses appeared well area gated in the mastoid air cells also appeared well irrigated. There were postoperative changes of bilateral maxillary antrostomies with uncinectomies, ethmoidectomies, and sphenoid sinus osteotomies. There were no other significant findings. She is seen for a follow-up visit. She indicates that she had completed a course of antibiotic therapy just prior to her recent CT scan. With that she did have significant improvement in her sinus symptoms. She has been feeling really tired, though. She is able to do her regular activity. ECOG score is 1. She has good appetite. She has not had fever or night sweating, she does have some hot flashes. She has not had sore mouth or throat. She does not complain of cough, and she has not been having shortness of breath or chest pain. She has a little bit of nausea. Her acid reflux is adequately managed with Protonix. She was having diarrhea, that is better now. She has no complaints. She has joint pain, which is about the same. She does not complain of headache or dizziness. She has neuropathy symptoms with the Cipro, but it is tolerable. Medications: Ambien 1 Tablet (of 5 mg) Oral at bedtime, Aspirin 1 Tablet (of 81 mg) Tablet, enteric coated Oral daily, Biotin 1 Tablet Oral daily, Colace 1 Capsule Oral daily, Furosemide 1 Tablet (of 40 mg) Oral daily, Metoprolol Succinate ER (50 mg) Tablet SR 24 HR Oral daily, Protonix 1 Tablet (of 20 mg) Tablet, enteric coated Oral daily, Vitamin D3 1 Tablet Oral daily Allergies: Ibuprofen, Levaquin, and traMADol HCl. Vital Signs: Performed on Jun 24, 2021 15:20 Height - 70.00 in Weight - 245.2 lbs (LOW) BSA - 2.28 sq.m BMI - 35.18 (HIGH) Temperature - 98.2 F (LOW) Pulse - 69 /min Respiration - 20 /min BP - 112/74 mm(hg) O2 Sat - 98 % Pain - 0 Fatigue - 3 Physical Examination: Constitutional - She looks pretty good generally, Eyes - Sclerae nonicteric. Conjunctivae clear, ENMT - No lesions noted in the oral cavity, Hematologic/Lymphatic - No cervical, clavicular, or axillary adenopathy, Respiratory - Lungs are clear. She has good air movement bilaterally, Cardiovascular - Heart rhythm is regular. There is a II/ systolic murmur. There is no gallop or rub noted, Abdomen - Soft. Liver and spleen are not enlarged. There is no abdominal mass or ascites noted and there is no inguinal adenopathy, Extremities - No edema, Neurologic - No focal neurologic deficits noted. Lab/Imaging: Test performed on Jun 24, 2021 13:20 LDH (Total) 317 U/L Sodium 143 mmol/L Potassium 4.4 mmol/L Chloride 106 mmol/L CO2 24 mmol/L Anion Gap 17.4 BUN 34 mg/dL Creatinine 1.2 mg/dL Cr Clearance (Est) 78.78 mL/min eGFR 44.7 mL/min Glucose 81 mg/dL Osmolality - Calculated 303 mOsm/kg Calcium 8.9 mg/dL Protein, Total 6.9 g/dL Albumin 4.2 g/dL Globulin 2.7 g/dL Bilirubin, Total 0.5 mg/dL ALT (SGPT) 20 U/L AST (SGOT) 25 U/L Alkaline Phosphatase 91 IU/L WBC 6.6 10 3/uL RBC 5.09 10 6/uL HGB 13.5 g/dL HCT 44.0 % MCV 86.4 fl MCH 26.5 pg MCHC 30.7 g/dL RDW 15.1 % Platelet Count 204 10 3/cmm MPV 10.5 fL Neutrophils 3.65 10 3/uL Lymphocytes 1.9 10 3/uL Monocytes 0.5 10 3/uL Eosinophils 0.4 10 3/uL Basophils 0.0 10 3/uL Neutrophil % 55.8 % Lymphocyte % 29.6 % Monocyte % 7.9 % Eosinophil % 5.8 % Basophils % 0.6 % NRBC % 0 % Problem List: 1. 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 2. She underwent left revision endoscopic maxillary antrostomy with debridement, left balloon frontal sinuplasty, and right endoscopic sphenoidotomy with debridement on 05/01/2020. 3. She has underlying chronic sinusitis. 4. Sxsbd-Eztvpyk-Bqfpi syndrome with previous coronary bypass procedure. 5. Atrial fibrillation. 6. Diastolic congestive heart failure. 7. Hypertension. 8. Hyperlipidemia. 9. GERD. 10. Hypothyroidism. 11. Degenerative arthritis. 12. Obstructive sleep apnea. 13. COVID-19 infection. 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 She had pre-existing chronic sinusitis. She underwent left maxillary antrostomy with debridement, left balloon frontal sinuplasty, and right endoscopic sphenoidotomy with debridement on 05/01/2020. Her staging PET/CT showed no other areas of involvement. Findings were limited to minimal inflammatory appearing activity in mucosa of the left maxillary sinus. Her whole blood flow cytometry did show a very small population of monoclonal B cells, suspicious for underlying chronic lymphocytic leukemia. As the CLL/small lymphocytic lymphoma did not appear to be symptomatic, expectant management was recommended. During follow-up she has had improvement in her sinusitis symptoms taking ciprofloxacin on an intermittent basis. Thus far there has been no evidence for significant progression of the chronic lymphocytic leukemia/small lymphocytic lymphoma. She continues expectant management. At least for now she will continue her regular follow-up with Dr. Hannah and I will plan to see her again as needed. Signed By: Garcia Horner M.D. <<Signature on File>>
== END 2021-06-24 13:06 | disposition home or self-care (01) ==
PROVIDERS: PCP Family Medicine; Visit Provider Internal Medicine Medical Oncology
DX: Z08 Encounter for follow-up examination after completed treatment for malignant neoplasm (principal); Z85.72 Personal history of non-Hodgkin lymphomas; J32.9 Chronic sinusitis, unspecified; I25.10 Atherosclerotic heart disease of native coronary artery without angina pectoris; Z95.5 Presence of coronary angioplasty implant and graft; I48.20 Chronic atrial fibrillation, unspecified; I50.30 Unspecified diastolic (congestive) heart failure; I11.0 Hypertensive heart disease with heart failure; E78.5 Hyperlipidemia, unspecified; K21.9 Gastro-esophageal reflux disease without esophagitis; E03.9 Hypothyroidism, unspecified; M19.90 Unspecified osteoarthritis, unspecified site; G47.33 Obstructive sleep apnea (adult) (pediatric); Z86.16 Personal history of COVID-19; Z79.899 Other long term (current) drug therapy
CPT/HCPCS: 36415; 80053; 83615; 85025; 99214

== ENCOUNTER 2022-01-13 10:49 | Emergency (ER) | payer MEDICARE, OTHER, SELFPAY ==
--- NOTE | 2022-01-13 10:51 | XRR_ITS ---
PROCEDURE INFORMATION: Exam: XR Chest Exam date and time: 01/13/2022 11:20 AM Age: 71 years old Clinical indication: Pain; Angina pectoris; Prior surgery; Patient HX: HX of lymphoma; Additional info: Palpitations TECHNIQUE: Imaging protocol: XR of the chest. Views: 1 view. COMPARISON: CR XR chest 2V insp/exp [id number] 10/16/2019 4:19 PM FINDINGS: Lungs: Unremarkable. No consolidation. Pleural spaces: Unremarkable. No pleural effusion. No pneumothorax. Heart/Mediastinum: Stable cardiomediastinal silhouette. Mediastinal surgical clips noted. Bones/joints: Median sternotomy changes seen. XR/XR chest 1V portable [id number] IMPRESSION: No evidence of active cardiopulmonary disease.
--- NOTE | 2022-01-13 10:51 | ECG_ITS ---
[facility] Test Date: 2022-01-13 Pat Name: Vilma Charlton Department: Room: Gender: Female Emblem Maker: : 1950 Requested By: Georgina Durbin Order Number: [id number] Preethi MD: Brian Santos M.D. Measurements Intervals [place] Rate: 136 P: UT: QRS: -60 QRSD: 153 T: 115 QT: 314 QTc: 473 Interpretive Statements ATRIAL FIBRILLATION WITH RAPID VENTRICULAR RESPONSE WITH ABERRANT CONDUCTION OR VENTRICULAR PREMATURE COMPLEXES INTRAVENTRICULAR CONDUCTION DELAY [130+ ms QRS DURATION] Compared to ECG 08/16/2019 11:51:44 Aberrant conduction of supraventricular beat(s) now present Ventricular premature complex(es) now present Electronically Signed On 01-13-2022 15:20:48 CDT by Brian Santos M.D. [id number]
[2022-01-13 11:01] VITALS: BP 136/85; PULSE 137; RESP 22; O2SAT 96; BMI 34.4
[2022-01-13 11:42] LABS: Basophils # 0.1 10^3/uL (0.0-0.1); Basophils % 0.6 %; Eosinophils # 0.4 10^3/uL (0.0-0.8); Eosinophils % 4.7 %; Hematocrit 46.7 % (37.0-47.0); Hemoglobin 14.4 g/dL (11.5-15.3); Lymphocytes # 2.8 10^3/uL (0.8-4.8); Lymphocytes % 34.1 %; Mean Corpuscular HGB Conc 30.8 g/dL (30.0-36.0); Mean Corpuscular Hemoglobin 25.9 pg (28.0-34.0); Mean Corpuscular Volume 84.1 fl (81-99); Mean Platelet Volume 10.3 fL (7.4-10.4); Monocytes # 0.7 10^3/uL (0.2-0.9); Monocytes % 8.3 %; Neutrophils # 4.28 10^3/uL (1.8-7.7); Neutrophils % 52.1 %; Nucleated Red Blood Cells % 0 %; Platelet Count 213 10^3/cmm (130-400); Red Blood Count 5.55 10^6/uL (4.1-5.3); Red Cell Distribution Width 14.3 % (12.1-15.1); White Blood Count 8.2 10^3/uL (4.0-10.0)
[2022-01-13] MEDS: esmolol drip 2,500 MG/250 ML PREMIX 32.7 MG (11:45)
[2022-01-13 12:10] LABS: Blood Urea Nitrogen 26 mg/dL (8-23); Calcium 9.5 mg/dL (8.5-10.5); Carbon Dioxide 26 mmol/L (22-29); Chloride 103 mmol/L (98-107); Glomerular Filtration Rate 49.2 mL/min (90-130); Glucose 109 mg/dL (65-115); Magnesium 2.4 mg/dL (1.7-2.3); Osmolality Calculated 299 mOsm/kg (285-295); Sodium 142 mmol/L (136-145); Troponin(5th) Baseline 14 ng/L (0-10)
--- NOTE | 2022-01-13 12:14 | W.ED.CHESTPA ---
HPI - Chest Pain General: Chief Complaint: Chest Pain Stated Complaint: states high heart rate Time Seen by Provider: 01/13/22 11:05 Source: patient Mode of arrival: ambulatory Limitations: no limitations History of Present Illness: 71 yo female presents emergency room with rapid heart rate. Patient has a known history of atrial flutter she had 6 previous failed ablations and is being scheduled for second ablation. She stopped the metoprolol succinate she was on in preparation for this next ablation this morning began having rapid heart rate with mild chest discomfort and some shortness of breath with exertion at rest she is essentially symptom-free. On arrival here heart rates up in the 180s and 190s even at rest with mild chest pressure. She has not developed any orthopnea or leg swelling at this point she usually sees Dr. Amaya at [facility] in [place]. MD complaint: chest heaviness and chest discomfort Pertinent past history: other (atrial flutter) Onset (ago): hour(s) Timing of current episode: episodic Onset: during rest Relieving factors: nothing Exacerbating factors: nothing Associated symptoms: Reports palpitations; Deny abdominal pain, diaphoresis, dyspnea, fever(s), leg edema, nausea, sense of impending doom, syncope or vomiting Treatment prior to arrival: none Review of Systems Const: Reports: fatigue; Denies: fever(s), chills, malaise or diaphoresis ENMT: Denies: throat pain, ear or mastoid pain, nasal discharge or nasal congestion Card: Reports: palpitations and irregular heart rhythm; Denies: chest pain or syncope Resp: Denies: dyspnea GI: Denies: abdominal pain, nausea or vomiting : Denies: flank pain, difficulty voiding, dysuria, urinary frequency or urinary urgency Skin/Breast: Denies: rash or pruritus [facility] ED PFSH: Medical History (Updated 01/13/22 @ 13:09 by Natalio Langston DO) Anticoagulant long-term use Atrial fibrillation 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 Diastolic heart failure BOWERS (dyspnea on exertion) Hyperlipidemia Palpitations Plantar fasciitis RLS (restless legs syndrome) SOB (shortness of breath) Surgical History S/P ablation of atrial fibrillation S/P CABG (coronary artery bypass graft) Family History Other CAD (coronary artery disease) Myocardial infarct, old Stroke Social History Smoking and tobacco status: never smoked Alcohol intake: never Lives independently: Yes Household members: spouse Marital status: Current occupational status: retired History of recent travel: No Current gender identity: Female Isabel/Orthodoxy: Other Physical Exam Const: COMMON NORMALS: no acute distress GENERAL APPEARANCE: cooperative and comfortable ORIENTATION/CONSCIOUSNESS: Yes awake, Yes oriented to person, Yes oriented to place and Yes oriented to time HENMT: COMMON NORMALS: normocephalic, atraumatic and hearing grossly normal bilaterally HEAD & SCALP: normocephalic and atraumatic Resp: COMMON NORMALS: normal respiratory effort, No retractions, No use of accessory muscles and clear to auscultation bilaterally AUSCULTATION: clear to auscultation bilaterally Cardio: RATE: tachycardic RHYTHM: abnormal rhythm GI: COMMON NORMALS: Soft to palpation and No hepatosplenomegaly present AUSCULTATION: Yes normoactive bowel sounds PALPATION: Yes Soft to palpation, No Tenderness to palpation present (GI), No Guarding due to palpation present (GI) and Yes No hepatosplenomegaly present Extremity: COMMON NORMALS: normal to inspection, capillary refill normal, no clubbing, cyanosis or edema, no calf tenderness and no pedal edema Neuro: SENSORIUM/ORIENTATION: Yes oriented to person, Yes oriented to place and Yes oriented to time Skin: COMMON NORMALS: no rashes or lesions noted GENERAL SKIN EXAM: no rashes or lesions noted Course Vital Signs: Vital signs: Vital Signs Pulse Rate 137 H 01/13/22 11:01 Respiratory Rate 22 H 01/13/22 11:01 Blood Pressure 136/85 01/13/22 11:01 Pulse Oximetry 96 01/13/22 11:01 MDM - Chest Pain Medical Decision Making Patient rate controlled with esmolol. We stopped the esmolol and her heart rate remained well controlled. At discussed with Dr. Amaya her exhibit cleaner. He recommends resuming a beta-[place] we will start her on metoprolol tartrate 50 mg twice daily asked her to take that until just prior to her ablation. She should contact her exhibit cleaner for the timeframe in which to stop it. Return to emergency room if she has any further problems recurrence of rapid heart rate or chest discomfort Medical Records I reviewed the patient's medical records. Lab Data I reviewed the patient's lab results. : 01/13/22 11:35 01/13/22 11:35 Radiology Impressions Chest X-Ray 01/13/22 10:51 IMPRESSION: No evidence of active cardiopulmonary disease. Laboratory Results WBC 8.2 10^3/uL (4.0-10.0) 01/13/22 11:35 RBC 5.55 10^6/uL (4.1-5.3) H 01/13/22 11:35 Hgb 14.4 g/dL (11.5-15.3) 01/13/22 11:35 Hct 46.7 % (37.0-47.0) 01/13/22 11:35 MCV 84.1 fl (81-99) 01/13/22 11:35 MCH 25.9 pg (28.0-34.0) L 01/13/22 11:35 MCHC 30.8 g/dL (30.0-36.0) 01/13/22 11:35 RDW 14.3 % (12.1-15.1) 01/13/22 11:35 Plt Count 213 10^3/cmm (130-400) 01/13/22 11:35 MPV 10.3 fL (7.4-10.4) 01/13/22 11:35 Neut % (Auto) 52.1 % 01/13/22 11:35 Lymph % (Auto) 34.1 % 01/13/22 11:35 Fannin % (Auto) 8.3 % 01/13/22 11:35 Eos % (Auto) 4.7 % 01/13/22 11:35 Baso % (Auto) 0.6 % 01/13/22 11:35 Neut # (Auto) 4.28 10^3/uL (1.8-7.7) 01/13/22 11:35 Lymph # (Auto) 2.8 10^3/uL (0.8-4.8) 01/13/22 11:35 Fannin # (Auto) 0.7 10^3/uL (0.2-0.9) 01/13/22 11:35 Eos # (Auto) 0.4 10^3/uL (0.0-0.8) 01/13/22 11:35 Baso # (Auto) 0.1 10^3/uL (0.0-0.1) 01/13/22 11:35 Nucleated RBC % (auto) 0 % 01/13/22 11:35 Nucleated RBCs # 0.0 /100WBC 01/13/22 11:35 Sodium 142 mmol/L (136-145) 01/13/22 11:35 Potassium 4.2 mmol/L (3.5-5.1) 01/13/22 11:35 Chloride 103 mmol/L (98-107) 01/13/22 11:35 Carbon Dioxide 26 mmol/L (22-29) 01/13/22 11:35 Anion Gap 17.2 (5-19) 01/13/22 11:35 BUN 26 mg/dL (8-23) H 01/13/22 11:35 Creatinine 1.1 mg/dL (0.5-0.9) H 01/13/22 11:35 GFR Calculation 49.2 mL/min (90-130) L 01/13/22 11:35 Glucose 109 mg/dL (65-115) 01/13/22 11:35 Calculated Osmolality 299 mOsm/kg (285-295) H 01/13/22 11:35 Calcium 9.5 mg/dL (8.5-10.5) 01/13/22 11:35 Magnesium 2.4 mg/dL (1.7-2.3) H 01/13/22 11:35 Troponin T Baseline 14 ng/L (0-10) H 01/13/22 11:35 Discharge Plan Discharge Patient Disposition: Home Clinical Impression: Atrial fibrillation Condition: Stable Prescriptions: New metoprolol tartrate 25 mg tablet 50 mg PO BID Qty: 60 0RF No Action metoprolol succinate 50 mg tablet extended release 24 hr 50 mg PO DAILY 0RF zolpidem [Ambien] 5 mg tablet 5 mg PO .HS PRN (Reason: Insomnia) 0RF nitroglycerin [Nitrostat] 0.4 mg tablet, sublingual 0.4 mg SUBLINGUAL Q5M PRN (Reason: Chest Pain) 0RF aspirin [Adult Low Dose Aspirin] 81 mg tablet,delayed release (DR/EC) 81 mg PO DAILY 0RF pantoprazole [Protonix] 20 mg tablet,delayed release (DR/EC) 20 mg PO QAM 0RF fluticasone propionate [Flonase Allergy Relief] 50 mcg/actuation spray,suspension 1 spray INTRANASAL Q12H 90 Days Qty: 36.4 3RF Rx Instructions: administer into each nostril furosemide 40 mg tablet 40 mg PO QAM 90 Days Qty: 90 3RF Multi-Daily W/Minerals Tablet 1 tab PO DAILY 0RF Eliquis 5 mg Tablet 5 mg PO BID 0RF Discharge Orders: Discharge ED (Routine); Ordered 01/13/22 Ordered By: Natalio Langston Referrals: Baldomero Hannah MD [Primary Care Provider] - Discharge Diet: Usual diet Discharge Activity: Limit activity as instructed Activity Restrictions/Additional Instructions: Avoid exertional activities. Start the metoprolol tartrate 50 mg twice daily until you have your ablation. Contact the exhibit cleaner in [place] to see how long prior to the ablation you need to stop the medication. If you have recurrent rapid heart rates return to the emergency room. Coding Level of Care Code ED Cement Tester Assistant for Esequiel Portillo
[2022-01-13 12:27] LABS: Anion Gap 17.2 (5-19); Potassium 4.2 mmol/L (3.5-5.1)
--- NOTE | 2022-01-13 12:51 | ECG_ITS ---
[facility] Test Date: 2022-01-13 Pat Name: Vilma Charlton Department: Room: Gender: Female Director Of Community Life: : 1950 Requested By: Georgina Durbin Order Number: [id number] Reading MD: Brian Santos M.D. Measurements Intervals [place] Rate: 83 P: 229 CO: 236 QRS: -65 QRSD: 154 T: 116 QT: 389 QTc: 459 Interpretive Statements SINUS RHYTHM WITH FIRST DEGREE AV BLOCK INTRAVENTRICULAR CONDUCTION DELAY [130+ ms QRS DURATION] Compared to ECG 01/13/2022 11:16:30 First degree AV block now present Atrial fibrillation no longer present Aberrant conduction of supraventricular beat(s) no longer present Ventricular premature complex(es) no longer present Electronically Signed On 01-13-2022 15:25:31 CDT by Brian Santos M.D. [id number]
== END 2022-01-13 13:45 | disposition home or self-care (01) ==
PROVIDERS: Emergency Medicine; Emergency Provider Family Medicine; PCP Family Medicine
DX: I48.91 Unspecified atrial fibrillation (principal); Z95.1 Presence of aortocoronary bypass graft; Z79.01 Long term (current) use of anticoagulants; I50.32 Chronic diastolic (congestive) heart failure
CPT/HCPCS: 71045; 80048; 83735; 84484; 85025; 93005; 99284; J3490

== ENCOUNTER 2022-02-02 10:23 | Outpatient (CLI) | payer MEDICARE, OTHER, SELFPAY ==
--- NOTE | 2022-02-02 10:35 | FL_ITS ---
WS: [id number] FL sniff test [id number] REASON FOR EXAM: SHORTNESS OF BREATH FLUOROSCOPY TIME: 2min [phone] # OF SPOT FILMS: None FINDINGS: Diaphragmatic movement was evaluated fluoroscopically with the patient upright. Normal breathing, alba p slow breathing, and rapid heart dyspnea. Maneuvers were employed. The left hemidiaphragm demonstrated normal motion. The right hemidiaphragm was elevated. The right hemidiaphragm demonstrated attenuated downward movement with normal and deep breathing. The right hemidiaphragm demonstrated paradoxical short upward movement with a hard rapid sniff. FL/FL sniff test [id number] IMPRESSION: Abnormal right hemidiaphragmatic movement as above.
== END 2022-02-02 10:24 | disposition home or self-care (01) ==
PROVIDERS: PCP Family Medicine; Visit Provider Nurse Practitioner Family
DX: R06.02 Shortness of breath (principal)
CPT/HCPCS: 76000

== ENCOUNTER 2022-07-29 12:42 | Outpatient (CLI) | payer MEDICARE, OTHER, SELFPAY ==
--- NOTE | 2022-07-29 | XR_ITS ---
WS: [email or web address] Exam: XR chest 2V* [id number] Date/Time of Exam: 07/29/2022 12:56 PM Reason For Exam: Disorders of diaphragm Comparison 04/05/2022. The lungs are fully expanded and clear. Elevated right diaphragm noted. Heart size is normal. The med iastinum is normal in contour. Signs of previous CABG surgery. Small battery pack seen in the epigast [place] region. Bony structures are intact. XR/XR chest 2V* [id number] IMPRESSION: 1. Chronically Elevated right diaphragm. 2. No acute infiltrate or other significant finding.
== END 2022-07-29 12:43 | disposition home or self-care (01) ==
LOC: RAD 12:50
PROVIDERS: PCP Family Medicine Adult Medicine; Visit Provider Internal Medicine Clinical Cardiac Electrophysiology
DX: J98.6 Disorders of diaphragm (principal)
CPT/HCPCS: 71046

== ENCOUNTER 2022-08-29 14:13 | Outpatient (CLI) | payer MEDICARE, OTHER, SELFPAY ==
--- NOTE | 2022-08-29 14:27 | MM_ITS ---
WS: [email or web address] VIEWS: MLO and CC views both breasts. 3D digital tomosynthesis is also included in this exam. Comparison made with prior exam of 07/18/2008, 09/30/2010, 11/12/2012, 06/03/2015, 04/19/2017, 05/08/2018, . Findings: There was no sign of mass, architectural distortion or suspicious calcification in either breast. Fa tty MM/[place] [id number] Impression: BI-RADS: 2-Benign FOLLOW-UP: 1 Year Follow-up This mammogram was also analyzed by the Computer Aided Detection System R2 Imag e Trading Assistant.
== END 2022-08-29 14:14 | disposition home or self-care (01) ==
LOC: RAD 14:18
PROVIDERS: PCP Family Medicine Adult Medicine; Visit Provider Family Medicine Adult Medicine
DX: Z12.31 Encounter for screening mammogram for malignant neoplasm of breast (principal)
CPT/HCPCS: 77063; 77067

== ENCOUNTER → 2022-09-09 14:23 | Outpatient (BNVA) | payer MEDICARE, OTHER, SELFPAY | PROVIDERS: PCP Family Medicine Adult Medicine; Visit Provider Podiatrist Foot & Ankle Surgery | DX: M21.41 Flat foot [pes planus] (acquired), right foot (principal); M76.71 Peroneal tendinitis, right leg | CPT/HCPCS: 73600; 73630; 99203 ==

== ENCOUNTER 2022-09-19 13:18 | Outpatient (CLI) | payer MEDICARE, OTHER, SELFPAY ==
--- NOTE | 2022-09-19 17:00 | CT_ITS ---
WS: [id number] CT PARANASAL SINUSES HISTORY: sinus mass s/p surgery TECHNIQUE: Contiguous 2.5 mm axial images obtained through the sinuses. Images are reconstructed in s agittal and coronal planes. All CT scans at [facility] use at least one of these dose optimiz ation techniques: automated exposure control; mA and/or kV adjustment per patient size (includes targ eted exams where dose is matched to clinical indication); or iterative reconstruction. DLP: 388.18 mGy.cm COMPARISON: None available. Frontal sinuses: Small caliber frontal sinuses. Nonaerated RIGHT frontal sinus. Sphenoid sinus: Normal. Ethmoid sinuses: Negative. Maxillary sinus: Negative. Prior endoscopic surgical changes. Ostiomeatal unit: Widely patent from prior surgery. No soft tissue masses. No significant deviation o f the nasal septum. Orbits and globes are negative. No soft tissue masses are identified. CT/CT sinus wo con* [id number] IMPRESSION: 1. Postoperative changes involving the ostiomeatal units. 2. No soft tissue mass within the sinuses or osseous destruction. 3. No sinus disease.
== END 2022-09-19 13:19 | disposition home or self-care (01) ==
LOC: RAD 13:18
PROVIDERS: PCP Family Medicine Adult Medicine; Visit Provider Family Medicine Adult Medicine
DX: Z98.890 Other specified postprocedural states (principal)
CPT/HCPCS: 70486

== ENCOUNTER → 2022-10-10 09:50 | Outpatient (BNVA) | payer MEDICARE, OTHER, SELFPAY | PROVIDERS: PCP Family Medicine Adult Medicine; Visit Provider Podiatrist Foot & Ankle Surgery | DX: M21.41 Flat foot [pes planus] (acquired), right foot (principal); M76.71 Peroneal tendinitis, right leg | CPT/HCPCS: 99213 ==

== ENCOUNTER → 2022-11-29 09:18 | Outpatient (BNVA) | payer MEDICARE, OTHER, SELFPAY | PROVIDERS: PCP Family Medicine Adult Medicine; Visit Provider Family Medicine Adult Medicine | DX: N18.30 Chronic kidney disease, stage 3 unspecified (principal); I50.30 Unspecified diastolic (congestive) heart failure; I48.91 Unspecified atrial fibrillation; E78.5 Hyperlipidemia, unspecified; C83.09 Small cell B-cell lymphoma, extranodal and solid organ sites | CPT/HCPCS: 80053; 80061; 83615; 84443; 85025 ==

== ENCOUNTER → 2023-03-15 09:01 | Outpatient (BNVA) | payer MEDICARE, OTHER, SELFPAY | PROVIDERS: PCP Family Medicine Adult Medicine; Visit Provider Family Medicine Adult Medicine | DX: Z95.1 Presence of aortocoronary bypass graft (principal); Z98.890 Other specified postprocedural states; Z86.79 Personal history of other diseases of the circulatory system; I48.91 Unspecified atrial fibrillation; E78.5 Hyperlipidemia, unspecified; Z79.01 Long term (current) use of anticoagulants; N18.30 Chronic kidney disease, stage 3 unspecified | CPT/HCPCS: 80053; 80061; 84443; 85025 ==

== ENCOUNTER → 2023-06-06 12:28 | Outpatient (BNVA) | payer MEDICARE, OTHER, SELFPAY | PROVIDERS: PCP Family Medicine Adult Medicine; Visit Provider Family Medicine | DX: C83.09 Small cell B-cell lymphoma, extranodal and solid organ sites (principal); N18.30 Chronic kidney disease, stage 3 unspecified; E78.5 Hyperlipidemia, unspecified; I48.91 Unspecified atrial fibrillation; I50.30 Unspecified diastolic (congestive) heart failure | CPT/HCPCS: 80053; 80061; 84439; 84443; 85025; 85651 ==

== ENCOUNTER → 2023-09-14 14:45 | Outpatient (BNVA) | payer MEDICARE, OTHER, SELFPAY | PROVIDERS: PCP Family Medicine Adult Medicine; Visit Provider Dermatology | DX: L72.0 Epidermal cyst (principal); L81.4 Other melanin hyperpigmentation; D18.01 Hemangioma of skin and subcutaneous tissue | CPT/HCPCS: 99213 ==

== ENCOUNTER 2023-12-05 08:16 | Outpatient (CLI) | payer MEDICARE, OTHER, SELFPAY ==
--- NOTE | 2023-12-05 08:25 | MM_ITS ---
WS: [id number] BILATERAL SCREENING DIGITAL TOMOSYNTHESIS MAMMOGRAM WITH CAD HISTORY: SCREENING COMPARISON: 08/29/2022, 05/08/2018 Bilateral CC and MLO views with tomosynthesis and synthetic mammography submitted. Computer aided det ection analyzed. Breast composition: There are scattered areas of fibroglandular density. No suspicious masses, microc alcifications or architectural distortion. Benign calcifications. MM/[place] [id number] IMPRESSION: BI-RADS: 2-Benign FOLLOW UP: 1 Year Follow-up
== END 2023-12-05 08:17 | disposition home or self-care (01) ==
LOC: RAD 08:17
PROVIDERS: PCP Family Medicine Adult Medicine; Visit Provider Family Medicine Adult Medicine
DX: Z12.31 Encounter for screening mammogram for malignant neoplasm of breast (principal); N18.30 Chronic kidney disease, stage 3 unspecified; E78.5 Hyperlipidemia, unspecified; I50.30 Unspecified diastolic (congestive) heart failure; I48.91 Unspecified atrial fibrillation; C83.09 Small cell B-cell lymphoma, extranodal and solid organ sites
CPT/HCPCS: 77063; 77067; 80053; 80061; 84443; 85025

== ENCOUNTER 2024-03-26 10:37 | Outpatient (RCR) | payer MEDICARE, OTHER, SELFPAY | END 2024-04-06 18:00 | disposition home or self-care (01) | LOC: SPT 10:37 | PROVIDERS: Visit Provider Family Medicine Adult Medicine | DX: M79.641 Pain in right hand (principal); M79.642 Pain in left hand; M54.2 Cervicalgia; G89.29 Other chronic pain | CPT/HCPCS: 97110; 97161 ==

== ENCOUNTER 2024-04-07 06:00 | Outpatient (RCR) | payer MEDICARE, OTHER, SELFPAY | END 2024-05-06 23:59 | disposition home or self-care (01) | LOC: SPT 06:00 | PROVIDERS: Visit Provider Family Medicine Adult Medicine | DX: M79.641 Pain in right hand (principal); M79.642 Pain in left hand; M54.2 Cervicalgia | CPT/HCPCS: 97110 ==

== ENCOUNTER 2024-05-07 07:00 | Outpatient (RCR) | payer MEDICARE, OTHER, SELFPAY | END 2024-06-06 23:59 | disposition home or self-care (01) | LOC: SPT 07:00 | PROVIDERS: Visit Provider Family Medicine Adult Medicine | DX: M79.641 Pain in right hand (principal); M79.642 Pain in left hand; M54.2 Cervicalgia; G89.29 Other chronic pain | CPT/HCPCS: 97110 ==

== ENCOUNTER 2024-06-07 06:30 | Outpatient (RCR) | payer MEDICARE, OTHER, SELFPAY | END 2024-07-06 23:59 | disposition home or self-care (01) | LOC: SPT 06:30 | PROVIDERS: Visit Provider Family Medicine Adult Medicine | DX: M79.641 Pain in right hand (principal); M79.642 Pain in left hand; M54.2 Cervicalgia | CPT/HCPCS: 97110 ==

== ENCOUNTER 2024-07-07 06:30 | Outpatient (RCR) | payer MEDICARE, OTHER, SELFPAY | END 2024-08-06 23:59 | disposition home or self-care (01) | LOC: SPT 06:30 | PROVIDERS: Visit Provider Family Medicine Adult Medicine | DX: M79.641 Pain in right hand (principal); M79.642 Pain in left hand; M54.2 Cervicalgia; G89.29 Other chronic pain | CPT/HCPCS: 97110 ==

== ENCOUNTER → 2024-07-10 12:30 | Outpatient (BNVA) | payer MEDICARE, OTHER, SELFPAY | PROVIDERS: Visit Provider Family Medicine | DX: C83.09 Small cell B-cell lymphoma, extranodal and solid organ sites (principal); N18.31 Chronic kidney disease, stage 3a; Z98.84 Bariatric surgery status | CPT/HCPCS: 80048; 82306; 82607; 83615; 85025 ==

== ENCOUNTER 2024-07-13 13:30 | Emergency (ER) | payer MEDICARE, OTHER, SELFPAY ==
[2024-07-13] VITALS (7 sets, daily range): BP systolic 123–167; BP diastolic 85–99; PULSE 87–105; RESP 16–17; TEMP 36.8; O2SAT 95–98; BMI 31.5
--- NOTE | 2024-07-13 13:34 | XRR_ITS ---
PROCEDURE INFORMATION: Exam: XR Right Ankle Exam date and time: 07/13/2024 1:57 PM Age: 73 years old Clinical indication: Injury or trauma; Fall; Blunt trauma; Ankle; Right TECHNIQUE: Imaging protocol: Radiologic exam of the right ankle. Views: 3 or more views. COMPARISON: CR XR ankle RT 2V [id number] 09/09/2022 2:26 PM FINDINGS: Bones/joints: Distal fibular metaphyseal oblique mildly displaced fracture. Calcified heel spur. Distal Achilles tendon degenerative calcification. Soft tissues: Soft tissue swelling about the ankle. XR/XR ankle RT min 3V* [id number] IMPRESSION: 1. Distal fibular metaphyseal oblique mildly displaced fracture. 2. Calcified heel spur. 3. Distal Achilles tendon degenerative calcification. 4. Soft tissue swelling about the ankle.
--- NOTE | 2024-07-13 13:34 | XRR_ITS ---
PROCEDURE INFORMATION: Exam: XR Right Hip Exam date and time: 07/13/2024 2:01 PM Age: 73 years old Clinical indication: Right hip; Prior surgery; Surgery date: 6+ months; Surgery type: Bilat hip replacement; Patient HX: RT hip pain after blunt trauma from bull accident TECHNIQUE: Imaging protocol: Radiologic exam of the right hip. Views: 1 view hip with pelvis when performed. COMPARISON: US renal BI* [id number] 01/12/2021 8:28 AM FINDINGS: Bones/joints: Bilateral hip arthroplasty changes. Soft tissues: Unremarkable. XR/XR hip RT 2-3V wo/w pel* [id number] IMPRESSION: 1. Negative for fracture or dislocation. 2. Bilateral hip arthroplasty changes.
--- NOTE | 2024-07-13 13:39 | CTR_ITS ---
PROCEDURE INFORMATION: Exam: CT Head Without Contrast Exam date and time: 07/13/2024 2:40 PM Age: 73 years old Clinical indication: Injury or trauma; Fall; Blunt trauma (contusions or hematomas) TECHNIQUE: Imaging protocol: Computed tomography of the head without contrast. Radiation optimization: All CT scans at this facility use at least one of these dose optimization techniques: automated exposure control; mA and/or kV adjustment per patient size (includes targeted exams where dose is matched to clinical indication); or iterative reconstruction. COMPARISON: CT sinus wo con* [id number] 09/19/2022 1:33 PM RADIATION DOSE METRICS: Total DLP (mGy-cm): 1098.52 FINDINGS: Brain: Moderate diffuse white matter disease likely reflecting chronic microvascular ischemic changes. Cerebral ventricles: No ventriculomegaly. Paranasal sinuses: Visualized sinuses are unremarkable. No fluid levels. Mastoid air cells: Visualized mastoid air cells are well aerated. Bones: Unremarkable. No acute fracture. Soft tissues: Right posterior scalp soft tissue swelling. CT/CT head wo con* [id number] IMPRESSION: Negative for intracranial hemorrhage or mass effect.
--- NOTE | 2024-07-13 13:39 | XRR_ITS ---
PROCEDURE INFORMATION: Exam: XR Chest Exam date and time: 07/13/2024 1:51 PM Age: 73 years old Clinical indication: Injury or trauma; Fall; Blunt trauma (contusions or hematomas) TECHNIQUE: Imaging protocol: Radiologic exam of the chest. Views: 1 view. COMPARISON: CR XR chest 2V* [id number] 07/29/2022 12:57 PM FINDINGS: Lungs: Right hilar region demonstrates increased prominence compared to prior exams, consider further evaluation with CT. Pleural spaces: Unremarkable. No pleural effusion. No pneumothorax. Heart/Mediastinum: Unremarkable. No cardiomegaly. Bones/joints: Sternotomy wires. XR/XR chest 1V portable [id number] IMPRESSION: 1. Right hilar region demonstrates increased prominence compared to prior exams, consider further evaluation with CT. 2. Sternotomy wires. 3. Negative for traumatic injury to the chest
--- NOTE | 2024-07-13 13:45 | XRR_ITS ---
PROCEDURE INFORMATION: Exam: XR Left Shoulder Exam date and time: 07/13/2024 1:53 PM Age: 73 years old Clinical indication: Injury or trauma; Fall; Blunt trauma (contusions or hematomas); Shoulder; Left TECHNIQUE: Imaging protocol: Radiologic exam of the left shoulder. Views: 2 or more views. COMPARISON: CR (CHEST, ) 07/13/2024 1:51 PM FINDINGS: Bones/joints: Left lateral 4th and 5th mildly displaced rib fractures. Soft tissues: Normal. XR/XR shoulder LT min 2V* [id number] IMPRESSION: Left lateral 4th and 5th mildly displaced rib fractures.
--- NOTE | 2024-07-13 13:46 | W.ED.TRAUMA ---
HPI - Trauma General: Chief Complaint: Trauma Stated Complaint: RIGHT ANKLE/HIP PAIN Time Seen by Provider: 07/13/24 13:34 Source: patient and EMS Mode of arrival: EMS Limitations: no limitations History of Present Illness: 73-year-old female states she was attacked by a bull just prior to arrival states it knocked her on the ground and threw her wants she states she did hit her head has hematoma to left forehead she also complaining of right ankle pain she been having some bilateral hip pain and left shoulder pain. She denies loss of consciousness she denies any abdominal pain or neck pain she rates her pain a 4 out of 10 currently. Associated symptoms: Reports headache(s); Denies abdominal pain, back pain, chest pain, chills, dental pain, fever(s), nausea or vomiting Related Data Home Medications Medication Instructions Recorded Confirmed aspirin 81 mg tablet,delayed 81 mg PO DAILY 08/09/19 07/13/24 release (Adult Low Dose Aspirin) nitroglycerin 0.4 mg sublingual 0.4 mg sublingual Q5M PRN Chest 08/09/19 07/13/24 tablet (Nitrostat) Pain multivitamin with minerals 1 tab PO DAILY 01/13/22 07/13/24 metoprolol tartrate 25 mg tablet 25 mg PO BID 07/12/22 07/13/24 Previous Rx's Medication Instructions Recorded furosemide 40 mg tablet 40 mg PO QAM 3 months #90 tabs 08/08/23 doxepin 75 mg capsule 75 mg PO .q hs sleep #30 caps 06/03/24 Allergies Allergy/AdvReac Type Severity Reaction Status Date / Time ibuprofen Allergy Severe ALGY-Hives Verified 07/10/24 11:42 sulfamethoxazole Allergy Severe ALGY-Swell Verified 07/10/24 11:42 [From Bactrim] Lip/Tongue/Throat trimethoprim [From Bactrim] Allergy Severe ALGY-Swell Verified 07/10/24 11:42 Lip/Tongue/Throat Opioids - Morphine Analogues Allergy Intermediate Hallucinati Verified 07/10/24 11:42 ons Review of Systems Const: Denies: fever(s), chills, body aches or change in appetite Eyes: Denies: blurry vision or eye discomfort ENMT: Denies: throat pain or dental pain Card: Denies: chest pain Resp: Denies: dyspnea GI: Denies: abdominal pain, nausea, vomiting or diarrhea Musc: Reports: extremity pain; Denies: neck pain or back pain Skin/Breast: Denies: rash Neuro: Reports: headache(s) PFSH ED PFSH: Medical History 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 Chronic neck pain with normal neurological examination Bilateral hand pain Atrial fibrillation 2021 converted to NSR & normal Response rate; hx of 5-6 cardioversions and 3 ablations; Dr. Amaya EPS at [facility]; hx of Maze procedure; on asa 81 Hilar lymphadenopathy Dyslipidemia cannot tolerate statins Insomnia DHARA on CPAP 02/07/2020 CPAP setting optimal 15 cm' she cannot tolerate CPAP so not using Implantable loop recorder present CKD (chronic kidney disease) stage 3, GFR 30-59 ml/min Chronic rhinosinusitis Complex congenital heart defect RLS (restless legs syndrome) Coronary arterio-cameral fistula Diastolic heart failure Plantar fasciitis Surgical History Bariatric surgery status Hx of cholecystectomy Hx of BSO (bilateral salpingo-oophorectomy) done because of benign cysts Hx of hysterectomy done for fibroids History of Estefania-en-Y gastric bypass Hx of sinus surgery 3 X Hx of heart surgery had cardiothoracic surgery--not CABG; it was for congenital defect [place] Chloe White Syndrome; done age 55 S/P ablation of atrial fibrillation hx of cardioverstions, ablations, maze procedure History of bilateral hip replacements History of bilateral knee replacement Family History Mother CAD (coronary artery disease) Hypertension Father CAD (coronary artery disease) Cancer oral Hyperlipidemia Hypertension Grandmother Diabetes Hypertension Stroke Grandfather Hypertension Other Myocardial infarct, old Denies family history of Clotting disorder Dementia Chronic kidney disease (CKD) Anesthesia complication Bleeding disorder Lung disease Social History Smoking and tobacco/nicotine status: never used tobacco/nicotine Alcohol intake: never Substance/Drug Use: never Caregiver/support person: No Lives independently: Yes Household members: spouse Marital status: Number of children: 4 Highest education level completed: Some College, No Degree service: No Current occupational status: retired 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 [employer] Do you think of yourself as: Straight/Heterosexual Current gender identity: Female Isabel/Shinto: Sabianism of Billy Special isabel needs: No Agree to transfusion: Yes Physical Exam Const: COMMON NORMALS: no acute distress, patient oriented x3 and healthy appearing HENMT: COMMON NORMALS: normocephalic HEAD & SCALP: normocephalic OTHER: hematoma to left forehead Eye: COMMON NORMALS: Equal, round and reactive pupils present and EOMs intact bilaterally PUPIL: Yes Equal, round and reactive pupils present Neck/C-Spine: COMMON NORMALS: full ROM and supple Chest: COMMONS NORMALS: normal inspection of the chest and normal palpation of entire chest wall Resp: COMMON NORMALS: normal respiratory effort, No retractions, No use of accessory muscles and clear to auscultation bilaterally AUSCULTATION: clear to auscultation bilaterally Cardio: COMMON NORMALS: regular rate, regular rhythm and No murmurs present (Cardio) RATE: regular rate RHYTHM: regular rhythm GI: COMMON NORMALS: Normal to inspection, nondistended, normoactive bowel sounds present, Soft to palpation, non-tender and no masses PALPATION: Yes Soft to palpation Extremity: COMMON NORMALS: full ROM NARRATIVE EXTREMITY EXAM: Tenderness noted to right ankle some slight swelling Neuro: COMMON NORMALS: patient oriented x3, moves all extremities and no focal motor deficits Psych: COMMON NORMALS: mental status grossly normal, Normal thought process present and cooperative THOUGHT PROCESS: Normal thought process present Skin: COMMON NORMALS: no rashes or lesions noted and no wounds GENERAL SKIN EXAM: no rashes or lesions noted Course Vital Signs: Vital signs: Vital Signs Temperature 98.2 F 07/13/24 13:36 Pulse Rate 88 07/13/24 14:07 Respiratory Rate 16 07/13/24 15:55 Blood Pressure 123/99 07/13/24 15:55 Pulse Oximetry 96 07/13/24 15:55 Oxygen Delivery Me thod Room Air 07/13/24 15:55 MDM - Trauma Medical Decision Making Patient presents after being attacked by a bull she does have a fracture noted to her right fibula did place her in a splint she is to be nonweightbearing with crutches we will get her follow-up with podiatry she does have 2 rib fractures no signs of any major lung injuries did inform her of the incidental finding she states she is in the follow-up with Dr. Horner she is return to the ER if worsening she understands agrees plan. Medical Records I reviewed the patient's medical records. Lab Data Radiology Impressions Ankle X-Ray 07/13/24 13:34 IMPRESSION: 1. Distal fibular metaphyseal oblique mildly displaced fracture. 2. Calcified heel spur. 3. Distal Achilles tendon degenerative calcification. 4. Soft tissue swelling about the ankle. Hip/Pelvis X-Ray 07/13/24 13:34 IMPRESSION: 1. Negative for fracture or dislocation. 2. Bilateral hip arthroplasty changes. Chest X-Ray 07/13/24 13:39 IMPRESSION: 1. Right hilar region demonstrates increased prominence compared to prior exams, consider further evaluation with CT. 2. Sternotomy wires. 3. Negative for traumatic injury to the chest ADDENDUM: 07/13/24 1504 Left lateral 4th and 5th mildly displaced rib fractures, better seen and as reported on subsequent left shoulder radiograph. Head CT 07/13/24 13:39 IMPRESSION: Negative for intracranial hemorrhage or mass effect. Shoulder X-Ray 07/13/24 13:45 IMPRESSION: Left lateral 4th and 5th mildly displaced rib fractures. Chest CT 07/13/24 15:06 IMPRESSION: 1. Age indeterminate (acute-appearing) minimally displaced fracture of the left lateral 4th and 5th ribs with mild associated soft tissue swelling. 2. Few scattered bilateral tiny (2-3 mm) nodules. For patients at low risk (minimal or absent history of smoking and of other known risk factors), no routine follow-up is indicated. For patients at high risk (history of smoking or of other known risk factors), consider optional CT Chest at 12 months. (Reference: Eusebia) . 3. Ectasia/mild aneurysmal dilatation of the ascending aorta, measuring 3.8 x 4.0 cm in the mid ascending plane. 4. Few scattered regions of air trapping in the bilateral lungs. May be due to chronic small airway versus small vessel disease. 5. Several prominent left supraclavicular, bilateral axillary, mediastinal, bilateral hilar lymph nodes are present, possibly reactive. 6. Several mildly prominent celiac axis , moe hepatis and retroperitoneal/para-aortic lymph nodes are present. Possibly reactive. REFERENCES: MacMahon H, et al. Guidelines for Management of Incidental Pulmonary Nodules Detected on CT Images: From the Fleischner Society 2017. Radiology. 2017;284(1):228-243. All radiology interpretation(s) finalized by discharge Discharge Plan Discharge Patient Disposition: Home Clinical Impression: Ankle fracture, right Qualifiers: Encounter type: initial encounter Fracture type: closed Qualified Code(s): S82.891A - Other fracture of right lower leg, initial encounter for closed fracture Closed rib fracture Qualifiers: Encounter type: initial encounter Rib fracture type: multiple ribs Laterality: left Qualified Code(s): S22.42XA - Multiple fractures of ribs, left side, initial encounter for closed fracture Condition: Stable Prescriptions: No Action nitroglycerin [Nitrostat] 0.4 mg tablet, sublingual 0.4 mg SUBLINGUAL Q5M PRN (Reason: Chest Pain) aspirin [Adult Low Dose Aspirin] 81 mg tablet,delayed release (DR/EC) 81 mg PO DAILY metoprolol tartrate 25 mg tablet 25 mg PO BID doxepin 75 mg capsule 75 mg PO .q hs Qty: 30 1RF furosemide 40 mg tablet 40 mg PO QAM 90 Days Qty: 90 3RF Multi-Daily W/Minerals Tablet 1 tab PO DAILY Discharge Orders: Discharge ED (Routine); Ordered 07/13/24 Ordered By: Steven Talley Referrals: Deric Reyes DPM [Physician] - 4-7 days Discharge Diet: Advance as tolerated Discharge Activity: Limit activity as instructed and Use walker/crutches as instructed Patient Instructions: Ankle Fracture (ED), Rib Fracture (ED) Coding Level of Care Code ED Air Quality Engineer for Esequiel Portillo
--- NOTE | 2024-07-13 15:06 | CTR_ITS ---
PROCEDURE INFORMATION: Exam: CT Chest With Contrast; Diagnostic Exam date and time: 07/13/2024 3:32 PM Age: 73 years old Clinical indication: Injury or trauma; Fall; Blunt trauma (contusions or hematomas) TECHNIQUE: Imaging protocol: Diagnostic computed tomography of the chest with contrast. Radiation optimization: All CT scans at this facility use at least one of these dose optimization techniques: automated exposure control; mA and/or kV adjustment per patient size (includes targeted exams where dose is matched to clinical indication); or iterative reconstruction. Contrast material: OMNI 350; Contrast volume: 90 ml; Contrast route: INTRAVENOUS (IV); COMPARISON: CR (CHEST, ) 07/13/2024 1:51 PM RADIATION DOSE METRICS: Total DLP (mGy-cm): 478.2 FINDINGS: Lungs: Few scattered regions of air trapping in the bilateral lungs. Mild dependent subsegmental atelectasis in the right lower lobe. Pleural spaces: Unremarkable. No pneumothorax. No pleural effusion. Heart: Normal heart size. No pericardial fluid. Coronary arteries: [id number] coronary vessel atherosclerosis, status post CABG. Lymph nodes: Several prominent left supraclavicular, bilateral axillary, mediastinal, bilateral hilar lymph nodes are present, possibly reactive. Several mildly prominent celiac axis , moe hepatis and retroperitoneal/para-aortic lymph nodes are present. Possibly reactive. Vasculature: No large or central pulmonary embolus. Ectasia/mild aneurysmal dilatation of the ascending aorta, measuring 3.8 x 4.0 cm in the mid ascending plane. Diaphragm: Small hiatal hernia. Status post gastric bypass. Status post cholecystectomy. Bones/joints: Prior median sternotomy for CABG. Age indeterminate (acute-appearing) minimally displaced fracture of the left lateral 4th and 5th ribs with mild associated soft tissue swelling. Soft tissues: See Bones/joints finding. Other findings: Few scattered bilateral tiny (2-3 mm) nodules. CT/CT chest w con* [id number] IMPRESSION: 1. Age indeterminate (acute-appearing) minimally displaced fracture of the left lateral 4th and 5th ribs with mild associated soft tissue swelling. 2. Few scattered bilateral tiny (2-3 mm) nodules. For patients at low risk (minimal or absent history of smoking and of other known risk factors), no routine follow-up is indicated. For patients at high risk (history of smoking or of other known risk factors), consider optional CT Chest at 12 months. (Reference: Eusebia) . 3. Ectasia/mild aneurysmal dilatation of the ascending aorta, measuring 3.8 x 4.0 cm in the mid ascending plane. 4. Few scattered regions of air trapping in the bilateral lungs. May be due to chronic small airway versus small vessel disease. 5. Several prominent left supraclavicular, bilateral axillary, mediastinal, bilateral hilar lymph nodes are present, possibly reactive. 6. Several mildly prominent celiac axis , moe hepatis and retroperitoneal/para-aortic lymph nodes are present. Possibly reactive. REFERENCES: Eusebia H, et al. Guidelines for Management of Incidental Pulmonary Nodules Detected on CT Images: From the Fleischner Society 2017. Radiology. 2017;284(1):228-243.
[2024-07-13] MEDS: iohexol 350 mg/mL 500 mL Btl (per mL) IV (15:37)
[2024-07-13] MEDS: naproxen 500 mg Tablet PO (16:50)
== END 2024-07-13 17:23 | disposition home or self-care (01) ==
PROVIDERS: Emergency Provider Emergency Medicine
DX: S82.891A Other fracture of right lower leg, initial encounter for closed fracture (principal); S22.42XA Multiple fractures of ribs, left side, initial encounter for closed fracture; W55.22XA Struck by cow, initial encounter; E78.5 Hyperlipidemia, unspecified; N18.30 Chronic kidney disease, stage 3 unspecified; I50.30 Unspecified diastolic (congestive) heart failure
CPT/HCPCS: 29515; 70450; 71045; 71260; 73030; 73502; 73610; 99285

== ENCOUNTER → 2024-07-16 13:43 | Outpatient (BNVA) | payer MEDICARE, OTHER, SELFPAY | PROVIDERS: Visit Provider Podiatrist Foot & Ankle Surgery | DX: S82.831A Other fracture of upper and lower end of right fibula, initial encounter for closed fracture; X58.XXXA Exposure to other specified factors, initial encounter | CPT/HCPCS: 73610 ==

== ENCOUNTER 2024-07-16 14:14 | Outpatient (CLI) | payer MEDICARE, OTHER, SELFPAY | END 2024-07-16 14:15 | disposition home or self-care (01) | LOC: SPT 14:15 | PROVIDERS: Visit Provider Podiatrist Foot & Ankle Surgery | DX: Z46.89 Encounter for fitting and adjustment of other specified devices (principal); S82.891D Other fracture of right lower leg, subsequent encounter for closed fracture with routine healing; X58.XXXD Exposure to other specified factors, subsequent encounter | CPT/HCPCS: 97760; L4361 ==

== ENCOUNTER → 2024-07-19 13:12 | Outpatient (BNVA) | payer MEDICARE, OTHER, SELFPAY | PROVIDERS: Visit Provider Podiatrist Foot & Ankle Surgery | DX: S82.831D Other fracture of upper and lower end of right fibula, subsequent encounter for closed fracture with routine healing; X58.XXXD Exposure to other specified factors, subsequent encounter | CPT/HCPCS: 29405 ==

== ENCOUNTER 2024-07-22 08:22 | Oncology outpatient (recurring) (ONCR) | payer MEDICARE, OTHER, SELFPAY | END 2024-08-06 23:59 | disposition home or self-care (01) | PROVIDERS: Visit Provider Internal Medicine Medical Oncology | DX: C83.09 Small cell B-cell lymphoma, extranodal and solid organ sites (principal) | CPT/HCPCS: 99205 ==

== ENCOUNTER → 2024-08-05 14:38 | Outpatient (BNVA) | payer MEDICARE, OTHER, SELFPAY | PROVIDERS: Visit Provider Podiatrist Foot & Ankle Surgery | DX: S82.831D Other fracture of upper and lower end of right fibula, subsequent encounter for closed fracture with routine healing; X58.XXXD Exposure to other specified factors, subsequent encounter | CPT/HCPCS: 73610; 99213 ==

== ENCOUNTER → 2024-08-26 12:59 | Outpatient (BNVA) | payer MEDICARE, OTHER, SELFPAY | PROVIDERS: Visit Provider Podiatrist Foot & Ankle Surgery | DX: S82.831D Other fracture of upper and lower end of right fibula, subsequent encounter for closed fracture with routine healing; W55.22XD Struck by cow, subsequent encounter | CPT/HCPCS: 73610 ==

== ENCOUNTER 2024-08-26 13:34 | Outpatient (CLI) | payer MEDICARE, OTHER, SELFPAY | END 2024-08-26 13:35 | disposition home or self-care (01) | LOC: SPT 13:36 | PROVIDERS: Visit Provider Orthopaedic Surgery | DX: Z46.89 Encounter for fitting and adjustment of other specified devices (principal); S82.831D Other fracture of upper and lower end of right fibula, subsequent encounter for closed fracture with routine healing; X58.XXXD Exposure to other specified factors, subsequent encounter | CPT/HCPCS: L1902 ==

== ENCOUNTER 2024-09-05 10:43 | Outpatient (RCR) | payer MEDICARE, OTHER, SELFPAY | END 2024-09-06 23:59 | disposition home or self-care (01) | LOC: SPT 10:43 | PROVIDERS: Visit Provider Family Medicine | DX: M54.2 Cervicalgia (principal); M79.641 Pain in right hand; M79.642 Pain in left hand; M25.511 Pain in right shoulder; M25.512 Pain in left shoulder; G89.29 Other chronic pain | CPT/HCPCS: 97161 ==

== ENCOUNTER 2024-09-07 06:30 | Outpatient (RCR) | payer MEDICARE, OTHER, SELFPAY | END 2024-10-04 23:59 | disposition home or self-care (01) | LOC: SPT 06:30 | PROVIDERS: PCP Family Medicine; Visit Provider Family Medicine | DX: M79.641 Pain in right hand (principal); M79.642 Pain in left hand; M25.511 Pain in right shoulder; M25.512 Pain in left shoulder | CPT/HCPCS: 97110 ==

== ENCOUNTER 2024-09-17 13:09 | Outpatient (CLI) | payer MEDICARE, OTHER, SELFPAY ==
--- NOTE | 2024-09-17 13:30 | XR_ITS ---
WS: [id number] DEXA (DUAL ENERGY X-RAY ABSORPTIOMETRY) Bone mineral density was performed using a Spock machine. HISTORY: postmenopausal COMPARISON: None available. Lumbar spine BMD (L1-L4): 1.280 g/cm2 T score: 0.8 Z score: 1.4 Left forearm BMD: 0.688 g/cm2. T score: -2.1 Z score: 0.2 RIGHT forearm BMD: 0.701 g/cm2. T score: 2.0. Z score: 0.0 XR/XR DEXA axial skeleton* [id number] IMPRESSION: OSTEOPENIA based upon the WHO classification for females.
== END 2024-09-17 13:10 | disposition home or self-care (01) ==
PROVIDERS: PCP Family Medicine; Visit Provider Family Medicine
DX: Z78.0 Asymptomatic menopausal state (principal); S82.831A Other fracture of upper and lower end of right fibula, initial encounter for closed fracture; M85.88 Other specified disorders of bone density and structure, other site; W55.22XA Struck by cow, initial encounter
CPT/HCPCS: 73610; 77080; 99213

== ENCOUNTER 2024-09-18 14:36 | Outpatient (CLI) | payer MEDICARE, OTHER, SELFPAY ==
--- NOTE | 2024-09-18 15:00 | USCV_ITS ---
Vilma Charlton Age: 74 Gender: F : 1950 Exam Date: 09/18/2024 14:53 Ordering Phys: Charity Blake MD Technologist: ALICIA [place] [facility] [place]: Ascending AO Aneurysm BP: 110 / 68 HR: 72 Rhythm: Sinus Technical Quality: Adequate MEASUREMENTS (Male / Female) Normal Values 2D ECHO LVOT Diameter 1.9 cm LV Ejection Fraction MOD 4C 43.0 % LV Ejection Fraction MOD 2C 68.5 % LV Ejection Fraction 2C AL 70.8 % LA Diameter 4.7 cm RA Systolic Volume 4C AL 30.4 ml RA Systolic Volume 4C MOD 28.5 ml LA Sys Volume AL 70.8 cm cubed LA Sys Volume Index AL 31.5 cm cubed/m squared Aorta at Sinotubular Diameter 2.6 cm M-MODE LA Ao Ratio MM 1.6 AV Cusp Separation MM 2.0 cm DOPPLER AV Peak Velocity 114.0 cm/s LVOT Peak Velocity 45.0 cm/s AV Area Cont Eq vti 1.1 cm squared AV Area Cont Eq pk 1.1 cm squared MV Peak Velocity 91.0 cm/s MV Area PHT 3.9 cm squared Mitral E to A Ratio 2.6 TV Peak Velocity 172.0 cm/s TR Peak Velocity 217.0 cm/s TR Peak Gradient 18.8 mmHg TV Peak E Velocity 98.0 cm/s PV Peak Velocity 118.5 cm/s FINDINGS Left Ventricle Mildly increased left ventricular cavity size. Moderately decreased left ventricular systolic function. Left ventricular ejection fraction is estimated at 45 %. Grade II/IV diastolic dysfunction, moderately elevated filling pressures. Right Ventricle The right ventricle is normal in size and function. Right Atrium The right atrium is normal in size. Left Atrium Moderately increased left atrial size. Mitral Valve Moderately thickened mitral valve. Mild mitral annular calcification. Mild mitral valve regurgitation. Aortic Valve Moderate aortic valve calcification. No aortic valve stenosis. Trace aortic valve regurgitation. Tricuspid Valve Structurally normal tricuspid valve without significant stenosis or regurgitation. Pulmonary artery systolic pressure is normal. Pulmonic Valve Structurally normal pulmonic valve without significant stenosis. There is no pulmonic regurgitation. Pericardium Normal pericardium without effusion. Aorta Normal ascending aorta dimension. IVC The inferior vena cava appears normal. CONCLUSIONS Mildly increased left ventricular cavity size. Moderately decreased left ventricular systolic function. Left ventricular ejection fraction is estimated at 45 %. Grade II/IV diastolic dysfunction, moderately elevated filling pressures. Moderately increased left atrial size. Moderately thickened mitral valve. Mild mitral annular calcification. Mild mitral valve regurgitation. Moderate aortic valve calcification. No aortic valve stenosis. Trace aortic valve regurgitation. Right atrial pressure is around 5 mm of mercury. Lakesha Layne MD (Electronically Signed) Final Date: 18 September 2024 20:33 S
== END 2024-09-18 14:37 | disposition home or self-care (01) ==
LOC: RAD 14:37
PROVIDERS: PCP Family Medicine; Visit Provider Family Medicine
DX: I77.810 Thoracic aortic ectasia (principal); Q24.9 Congenital malformation of heart, unspecified; R93.1 Abnormal findings on diagnostic imaging of heart and coronary circulation; I51.7 Cardiomegaly; I34.81 Nonrheumatic mitral (valve) annulus calcification; I34.0 Nonrheumatic mitral (valve) insufficiency; I35.8 Other nonrheumatic aortic valve disorders
CPT/HCPCS: 93306

== ENCOUNTER 2024-10-05 06:00 | Outpatient (RCR) | payer MEDICARE, OTHER, SELFPAY | END 2024-11-04 23:59 | disposition home or self-care (01) | LOC: SPT 06:00 | PROVIDERS: PCP Family Medicine; Visit Provider Family Medicine | DX: M79.641 Pain in right hand (principal); M79.642 Pain in left hand; M25.511 Pain in right shoulder; M25.512 Pain in left shoulder | CPT/HCPCS: 97110 ==

== ENCOUNTER → 2024-10-15 08:36 | Outpatient (BNVA) | payer MEDICARE, OTHER, SELFPAY | PROVIDERS: PCP Family Medicine; Visit Provider Podiatrist Foot & Ankle Surgery | DX: S82.831K Other fracture of upper and lower end of right fibula, subsequent encounter for closed fracture with nonunion (principal); X58.XXXD Exposure to other specified factors, subsequent encounter | CPT/HCPCS: 73610; 99213 ==

== ENCOUNTER 2024-11-05 06:30 | Outpatient (RCR) | payer MEDICARE, OTHER, SELFPAY | END 2024-11-19 13:29 | disposition home or self-care (01) | LOC: SPT 06:30 | PROVIDERS: PCP Family Medicine; Visit Provider Family Medicine | DX: M79.641 Pain in right hand (principal); M79.642 Pain in left hand; M25.511 Pain in right shoulder; M25.512 Pain in left shoulder | CPT/HCPCS: 97110 ==

== ENCOUNTER → 2024-11-19 12:19 | Outpatient (BNVA) | payer MEDICARE, OTHER, SELFPAY | PROVIDERS: PCP Family Medicine; Visit Provider Internal Medicine | DX: I50.33 Acute on chronic diastolic (congestive) heart failure (principal); N18.30 Chronic kidney disease, stage 3 unspecified; I48.0 Paroxysmal atrial fibrillation; Z79.82 Long term (current) use of aspirin; E78.5 Hyperlipidemia, unspecified; Z95.5 Presence of coronary angioplasty implant and graft; Z95.818 Presence of other cardiac implants and grafts; R07.9 Chest pain, unspecified | CPT/HCPCS: 93005; 99204 ==

== ENCOUNTER 2024-11-25 10:00 | Oncology outpatient (recurring) (ONCR) | payer MEDICARE, OTHER, SELFPAY ==
[2024-11-14] MEDS: iohexol 350 mg/mL 500 mL Btl (per mL) PO (08:35)
--- NOTE | 2024-11-14 09:15 | CT_ITS ---
WS: [id number] CT CHEST, ABDOMEN, AND PELVIS TECHNIQUE: Contrast-enhanced CT of the chest, abdomen, and pelvis with coronal and sagittal reformatted images. CLINICAL INFORMATION: lymphoma COMPARISON: None. DLP: 339.[address] scans at [facility] use at least one of these dose optimization techniques: automated exposure control; mA and/or kV adjustment per patient size (includes targeted exams where dose is matched to clinical indication); or iterative reconstruction. CT CHEST: Few slightly prominent anterior mediastinal and hilar lymph nodes similar to previous. These are nonspecific but may be reactive. Stable slightly ectatic ascending thoracic aorta. Sternotomy acute. CABG. Proximal main pulmonary arteries are normal. Lungs are well aerated. A few tiny noncalcified pulmonary nodules are unchanged. A few tiny calcified granulomas. Hypertrophic changes thoracic spine. Chronic LEFT rib fractures with callus formation. CT ABDOMEN AND PELVIS: No recent comparisons for the CT abdomen/pelvis Hepatomegaly. Fatty liver. Cholecystectomy clips. Mild splenomegaly. Spleen measures approximately 13.1 cm [id number]. Normal portal vein and splenic vein. Fatty atrophy of the pancreas. Celiac and SMA are patent. Enlarged lymph nodes in the upper abdomen and ome hepatis extending along the celiac axis. This is a suspicious appearance and recommend further evaluation with PET/CT. Small esophageal hiatal hernia. Postoperative changes gastric bypass. Adrenal glands are normal. No hydronephrosis. Bilateral renal cysts. Normal caliber abdominal aorta. Bilateral NIURKA degrades images in the pelvis. Slight anterolisthesis L5 on S1. CT/CT chest abdpel w/*[id number] IMPRESSION: 1. Nonspecific slightly prominent anterior mediastinal and hilar lymph nodes a s previously described although not pathologically enlarged. This may be reacti ve. 2. No axillary lymphadenopathy. 3. Enlarged lymph nodes in the upper abdomen involving the moe hepatis and c eliac axis. Findings are suspicious. Consider further evaluation with PET/CT. 4. Few prominent periaortic lymph nodes. Prominent lymph nodes along the centr al mesentery.
[2024-11-14 09:17] LABS: Blood Urea Nitrogen 37 mg/dL (8-23)
[2024-11-14] MEDS: iohexol 350 mg/mL 500 mL Btl (per mL) IV ×2 (09:45→09:46)
--- NOTE | 2024-11-14 10:32 | CT_ITS ---
WS: [id number] CT SINUSES TECHNIQUE: Contrast-enhanced CT of the paranasal sinuses with coronal and sagittal reformatted images. CLINICAL INFORMATION: lymphoma COMPARISON: 2022 DLP: [address] scans at [facility] use at least one of these dose optimization techniques: automated exposure control; mA and/or kV adjustment per patient size (includes targeted exams where dose is matched to clinical indication); or iterative reconstruction. FINDINGS: Mild nasal deviation right to left measuring 3 to 4 mm unchanged. Trace fluid in the maxillary sinuses. Paranasal sinuses are otherwise well aerated. Mild mucosal thickening in the ethmoid air cells. Mastoid air cells are well aerated. Normal posterior nasopharynx. Prior postoperative changes involving the maxillary sinuses with bilateral maxillary antrostomies and uncinectomies. Maxillary ostia are patent. Hypoplastic frontal sinuses bilaterally. Trace fluid in the sphenoid sinus. Evidence of postoperative osteotomies sphenoid ostia. CT/CT sinus w con [id number] IMPRESSION: 1. Prior postoperative changes bilateral maxillary antrostomies with uncinecto mies and ethmoidectomies. Sphenoid sinus osteotomies. 2. Trace fluid in the maxillary sinuses. 3. Mastoid air cells are well aerated. 4. No other significant findings.
[2024-11-25 10:25] LABS: Basophils % 0.5 %; Eosinophils # 0.3 10^3/uL (0.0-0.8); Eosinophils % 5.3 %; Hematocrit 48.2 % (36-47); Lymphocytes # 2.3 10^3/uL (0.8-4.8); Lymphocytes % 37.4 %; Mean Corpuscular HGB Conc 29.7 g/dL (30-55); Mean Corpuscular Hemoglobin 26.9 pg (27-33); Mean Corpuscular Volume 90.8 fl (85-98); Mean Platelet Volume 10.1 fL (7.4-10.4); Monocytes # 0.4 10^3/uL (0.2-0.9); Monocytes % 6.5 %; Nucleated Red Blood Cells % 0 %; Platelet Count 135 10^3/cmm (157-399); Red Blood Count 5.31 10^6/uL (3.85-5.65); Red Cell Distribution Width 14.8 % (12.1-15.1); White Blood Count 6.01 10^3/uL (3.29-11.43)
[2024-11-25 10:35] LABS: INR 0.86 (0.83-1.21); Prothrombin Time (Patient) 12.4 Seconds (12.0-15.1)
[2024-11-25 10:39] LABS: Alanine Aminotransferase 15 U/L (0-33); Albumin Level 3.9 g/dL (3.5-5.2); Alkaline Phosphatase 106 U/L (35-105); Anion Gap 12.3 (5-19); Aspartate Amino Transferase 24 U/L (0-32); Blood Urea Nitrogen 35 mg/dL (8-23); Calcium 8.5 mg/dL (8.5-10.5); Carbon Dioxide 26 mmol/L (22-29); Chloride 111 mmol/L (98-107); Creatinine Clr Calc Pharmacy 50.0291; Globulin 2.2 g/dL (1.3-4.6); Glucose 63 mg/dL (65-115); Osmolality Calculated 306 mOsm/kg (285-295); Potassium 4.3 mmol/L (3.5-5.1); Sodium 145 mmol/L (136-145); Total Bilirubin 0.6 mg/dL (0.15-1.2); Total Protein 6.1 g/dL (6.6-8.7)
== END 2024-12-04 23:59 | disposition home or self-care (01) ==
PROVIDERS: Internal Medicine; PCP Family Medicine; Visit Provider Internal Medicine Medical Oncology
DX: Z53.9 Procedure and treatment not carried out, unspecified reason; Z08 Encounter for follow-up examination after completed treatment for malignant neoplasm; Z85.72 Personal history of non-Hodgkin lymphomas; R03.0 Elevated blood-pressure reading, without diagnosis of hypertension; R59.1 Generalized enlarged lymph nodes
CPT/HCPCS: 36415; 70487; 71260; 74177; 80053; 82565; 84520; 85025; 85610; 99214

== ENCOUNTER → 2024-11-28 11:44 | Outpatient (BNVA) | payer MEDICARE, OTHER, SELFPAY | PROVIDERS: PCP Family Medicine; Visit Provider Family Medicine | DX: N18.31 Chronic kidney disease, stage 3a (principal); E78.5 Hyperlipidemia, unspecified; I48.0 Paroxysmal atrial fibrillation | CPT/HCPCS: 80061; 84443 ==

== ENCOUNTER → 2024-12-02 08:41 | Outpatient (BNVA) | payer MEDICARE, OTHER, SELFPAY | PROVIDERS: PCP Family Medicine; Visit Provider Podiatrist Foot & Ankle Surgery | DX: S82.831K Other fracture of upper and lower end of right fibula, subsequent encounter for closed fracture with nonunion (principal); X58.XXXD Exposure to other specified factors, subsequent encounter | CPT/HCPCS: 73610; 99214 ==

== ENCOUNTER 2024-12-03 06:01 | Outpatient (CLI) | payer MEDICARE, OTHER, SELFPAY ==
[2024-12-03] VITALS (15 sets, daily range): BP systolic 109–132; BP diastolic 55–69; PULSE 62–77; RESP 16–22; TEMP 36.4–36.8; O2SAT 93–98; BMI 31.5
--- NOTE | 2024-12-03 06:00 | XACV_ITS ---
Exam Room: 2 Ht: 178 cm Wt: 100 kg BSA: 2.25 m2 Gender: Female : 1950 Any Known Allergies: Other Exam Priority: Routine Procedure(s): Procedure Description: Diagnostic procedure Procedure Description: Venous Graft Catheterization Procedure Description: Miscellaneous Procedure Description: ACT Procedure Description: Coronary Angiography Diagnostic Cath Status: Elective Diagnostic Findings * INDICATION: LV dysfunction. 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 Proximal Right Coronary Artery: moderate 50% stenosis, SHAQ: 3 flow. PDA is diffusely diseased. Brief attempt at iFR was aborted as secondary to aneurysmla ostial segment, wire could not be advanced past the proximal segment. * Patient has a jump SVG graft to OM and LAD which is patent. [place] LAD has mid to distal severe disease. * Coronary angiography shows right dominance. Conclusions 1. Moderate RCA stenosis. Patent SVG jump graft to left circumflex artery and LAD. [place] LAD has severe mid to distal disease. 2. Patient has prior CABG. Recommendations * Aggressive medical therapy for risk factor modification. * Outpatient cardiology follow up in 2 weeks. Interventional RX Recommendation: medical therapy and/or counseling Diagnostic RX Recommendation: medical therapy and/or counseling Anticoagulation: Heparin Clinical Evaluation EBL: 5mL-10mL Procedural Details Pre-Procedure Time Out. Identified patient by full name and date of as verbalized by the patient/guarantor. Does the consent match the physician's order: Yes. Accurate & Complete Informed Consent: Yes. Inpatient/Outpatient History & Physical on Chart: Yes. If H&P is completed, is and addenduem needed: No; If yes, is the addendum complete: N/A. Visualize and Verify Site with Patient/Guarantor: N/A. Relevant Radiology Images available: N/A. Pre-op teaching completed and patient verbalized understanding. The risks, benefits, and alternatives of sedation and/or procedure were discussed by physician. The patient agrees to continue. Procedure started. [facility] Clinical Fraility Score: 3: Managing Well. Invertebrate Paleontologist Indications: LV Dysfunction. Correct patient, site and procedure confirmed by cath team. Current diagnosis: LV Dysfunction, Dyspnea. PERRLA. Strong, equal hand counter maker bilaterally. Lungs clear x 5 lobes. IV Site on Arrival: 20 gauge in the left anticubital. IV Fluids: 0.9% NaCl at KVO. 600 mL infused prior to optical laboratory manager. Pre Procedural Pulses: bilateral radial was 2+. Pre Procedural Pulses: bilateral posterior tibial was Doppled. Pre Procedural Pulses: bilateral dorsalis pedis was 1+. Oxygen started at 2liters/min via nasal canula. bilateral groins was prepped with chloroprep then draped in the usual sterile fashion. Physician notified. Baseline sample Acquired. HR: 65 BPM. Physician arrived. Physician scrubbed in. Immediate Pre-Procedure Time Out. Correct Patient: Yes; Correct Procedure: Yes; Correct Site: Yes; Correct Patient Position: Yes; Correct Supplies: Yes; Dried Flammable Prep: Yes; Blood Products Available: No;. Lidocaine 1% infiltrated to the right groin. Admit Source: Out Patient. Arterial access obtained with micropuncture set. A 5 [place] JR4 catheter in over wire. Multiple views taken of right coronary artery. SVG's to Circumflex visualized and patent. Catheter removed over the standard wire. 6 [place]ian JR 4 guide catheter was inserted over the wire. Add: Co-agricultural pilot, Endoflator. iFR pressurewire in through guide catheter. Runthrough wire advanced through guide catheter. Unable to advance wires to lesion in prox RCA. IFR wire and runthrough wire out. Guide catheter out over wire. 6 brazilian [place] 0.75 guide catheter was inserted over the wire. IFR wire through guide catheter. Runthrough wire in through guide catheter. Unable to advance wires to RCA. Both IFR and runthrough wire out. Results checked. Guide catheter out. ACT drawn. Results 291 seconds. Therapeutic limits - pre-heparin administration 90-150 seconds and monitoring heparin during a vascular procedure >250 seconds. A Suture was successful obtaining hemostatsis at the Right Femoral artery insertion site. Sheath(s) sutured into position with 2-0 silk and sterile 4x4's and Op-site applied over the site. No oozing or signs and symptoms of hematoma noted. Arterial sheath flushed and connected to tranducer and pressure bag with heparinized saline. Post Procedure: Pulses reassessed and unchanged. PERRLA. Strong, equal hand counter maker bilaterally. No VTE prophylaxis required. Medication's Wasted: Lidocaine 1% = 10 mL. Medication's Wasted: Heparin = 1000 units. Medication's Wasted: Other = Fentanyl 50mcg, Versed 1 mg. Total IV fluids: 50 mL. Post-op diagnosis: Moderate prox RCA stenosis, Patent SVG to circumflex graft patent. Complications: None. Estimated blood loss: 5mL-10mL. Responsiveness - Normal response to verbal stimuli; alert and oriented, PERRLA. Airway - Unaffected, no intervention required; spontaneous ventilation. Circulation: W/N/L, pulses unchanged. Nausea/Vomiting: No. Procedure completed. Patient transferred by bed to CPRU. Vital chart was stopped. Access Site Site: Right Femoral artery Sheath Size: 6 Fr Hemostasis Method: Suture Hemostasis Success: Successful Procedure Medications Start: 11:05 AM Stop: 11:05 AM Medication: Versed Amount: 1 mg Route: I.V. Start: 11:05 AM Stop: 11:05 AM Medication: Fentanyl Amount: 50 mcg Route: I.V. Start: 11:08 AM Stop: 11:08 AM Medication: Versed Amount: 1 mg Route: I.V. Start: 11:15 AM Stop: 11:15 AM Medication: Heparin Amount: 8000 units Route: I.V. Start: : AM Stop: : AM Medication: Versed Amount: 1 mg Route: I.V. I, the attending physician, have reviewed and verified all procedure medications. Yes, all medications given per verbal order History/Risk Factors Hypertension: No Dyslipidemia: Yes Peripheral Arterial Disease (PAD): No Myocardial Infarction (AL): No Obesity: No Renal Disease: No Prior Interventions PCI: No CABG: Yes Valve Surgery: No Report Signatures Finalized by Garcia Goldberg MD on 12/08/2024 01:30 PM
[2024-12-03] MEDS: sodium chloride 0.9% 250 ML 999 ML IV (06:30)
[2024-12-03] MEDS: sodium chloride 0.9% 1,000 ML 100 ML IV ×3 (06:50→15:06)
[2024-12-03 07:01] LABS: Anion Gap 13.1 (5-19); Blood Urea Nitrogen 32 mg/dL (8-23); Calcium 9.6 mg/dL (8.5-10.5); Carbon Dioxide 30 mmol/L (22-29); Chloride 106 mmol/L (98-107); Creatinine Clr Calc Pharmacy 43.3586; Glucose 96 mg/dL (65-115); Osmolality Calculated 307 mOsm/kg (285-295); Potassium 4.1 mmol/L (3.5-5.1); Sodium 145 mmol/L (136-145)
[2024-12-03] MEDS: aspirin 325 mg Tablet PO (09:45)
[2024-12-03] MEDS: diphenhydrAMINE 50 mg Capsule PO (09:45)
--- NOTE | 2024-12-03 10:09 | W.PM.OPSUD ---
Surgery/Procedure H&P Update DATE OF PROCEDURE: December 03, 2024 DATE H&P PERFORMED: 11/19/24 H&P UPDATE INFORMATION: I have reviewed H&P completed within last 30 days, I have examined patient prior to procedure and No changes to prior documentation PREOP DIAGNOSIS: LV dysfunction PRIMARY INDICATION FOR PROCEDURE: LV dysfunction PLANNED PROCEDURE: Operation Date: 12/03/24 10:00 Proposed Procedures p Cardiac Catheterization(Left) - Garcia Goldberg M.D Possible percutaneous coronary intervention PATIENT REASSESSED PRIOR TO SEDATION, WITH NO CHANGE NOTED: Yes PHYSICAL EXAM: alert, oriented x 3, clear to auscultation bilaterally and regular rate & rhythm AIRWAY EVAL/ANESTHESIA PLAN: normal airway, ASA III, Local Anesthesia, Risks, benefits & alternatives of sedation and/or procedure discussed and Patient agrees to continue as planned ADDITIONAL INFORMATION: Moderate sedation
--- NOTE | 2024-12-03 11:50 | PC.NURSE ---
Received the patient back from the geoscience laboratory technician via bed s/p Diagnostic [facility]. Patient drowsy. Awakens to verbal stimuli. A & 0 x 3. seafood service team member placed and vital signs obtained. 6 Japanese sheath sutured in the right groin to pressure bag. No bleeding or hematoma noted. Dressing D/I. No other assessment changes noted from pre cath assessment. Will transfer to floor bed when available. Family at bedside. No concerns voiced at this time.
--- NOTE | 2024-12-03 13:07 | P.PCN_ITS ---
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 Per prior cardiac catheterization, SVG graft to LAD was occluded. Today cardiac catheterization demonstrated patent RCA with aneurysmal ostial segment and 50% stenosis of proximal vessel. PDA is diffusely diseased. SVG to circumflex artery is patent however it appears from this graft significant jump graft to the LAD which is patent. [place] LAD has a severe stenosis in mid to distal segment Brief attempt at performing IFR of proximal RCA was done however because of aneurysmal segment of the ostial RCA, wiring was difficult. Given no chest pain symptoms and no severe stenosis, we aborted further attempts. At this time, continue medical therapy Performing Provider: Garcia Goldberg Estimated blood loss (mL): 5 Complications: None Condition: stable Disposition: same day Coding Level of Care Code Acute Code for Chg Bandar
--- NOTE | 2024-12-03 13:57 | PC.NURSE ---
Care transferred to John Valencia RN. Verbal report given.
--- NOTE | 2024-12-03 14:37 | PC.NURSE ---
Patient transferred from salvage laborer to CSU with a right femoral sheath at 1430.
--- NOTE | 2024-12-03 17:22 | PC.NURSE ---
Patient's discharge will be delayed due to right femoral sheath pull. Patient's up time is 1929, she will then be watched for 1 hour to watch for bleeding. Then discharge around 2029.
--- NOTE | 2024-12-03 19:56 | PC.NURSE ---
Patient able to ambulate out of bed. Patient sat on side of the bed and used bathroom with no issues, VSS. Groin site is soft no signs of hematoma. IV taken out and patient getting dressed. at bedside.
--- NOTE | 2024-12-03 20:38 | PC.NURSE ---
Patient was educated about discharge instructions and care. Site soft with no hematoma. All questions answered. Patient belongings gather and IV was taken out prior to getting dressed. VSS.
== END 2024-12-03 20:38 | disposition home or self-care (01) ==
LOC: CCL 06:03 → CSU 13:47
PROVIDERS: PCP Family Medicine; Visit Provider Internal Medicine
DX: I25.10 Atherosclerotic heart disease of native coronary artery without angina pectoris (principal); Z95.1 Presence of aortocoronary bypass graft; E78.5 Hyperlipidemia, unspecified; Z79.82 Long term (current) use of aspirin; K21.9 Gastro-esophageal reflux disease without esophagitis; G47.33 Obstructive sleep apnea (adult) (pediatric); N18.30 Chronic kidney disease, stage 3 unspecified; Z82.49 Family history of ischemic heart disease and other diseases of the circulatory system; I50.9 Heart failure, unspecified
CPT/HCPCS: 36415; 80048; 85347; 93455; 96360; 96361; 96367; 96374; 99152; 99153; C1760; C1769; C1887; C1894; G0269; J1644; J2250; J3010; J7030; J9999; Q0163; Q9967

== ENCOUNTER 2024-12-06 09:54 | Oncology outpatient (recurring) (ONCR) | payer MEDICARE, OTHER, SELFPAY ==
--- NOTE | 2024-12-06 10:00 | PETR_ITS ---
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 Then, PET images were obtained. Attenuation corrected images were constructed using the CT scan. Fused images of PET and CT were reviewed. The standardized uptake values (SUV) reported below are maximum values within a region of interest, expressed in gm/ml. Exam includes orbital meatal line to mid-thigh. SUV normalization method: BodyWeight Radiopharmaceutical: 11.76 mCi F-18 FDG (Fluorodeoxyglucose), IV. Time of imaging post radiopharmaceutical administration: 48 minutes Injection site: LEFT AC COMPARISON: CT chest abdpel w/*[id number] 11/14/2024, PET-CT 05/30/2020 FINDINGS: Brain: Normal physiologic uptake. Paranasal sinuses: No abnormal uptake. No mucosal thickening or air-fluid levels. Pharynx: No abnormal uptake. Larynx: No abnormal uptake. Lungs, pleura and trachea: No abnormal uptake. No lung nodules or masses. Heterogenous density of lung parenchyma is suggestive of mosaic perfusion for clinical correlation with small airway disease. No pleural effusion. Heart: No abnormal uptake. There is no cardiomegaly. There is no pericardial effusion. Status post CABG surgery. Mediastinal space: No abnormal uptake. Liver: No abnormal uptake. Maximum uptake is 3.5 SUV. Gallbladder and biliary ducts: No abnormal uptake. Status post cholecystectomy. Pancreas: No abnormal uptake. Spleen: No abnormal uptake. Mild splenomegaly (13.3 cm). Adrenal glands: No abnormal uptake. No lung nodules. Kidneys and ureters: Normal physiologic uptake. No hydronephrosis. Bilateral simple cysts measuring 2.2 cm posteriorly in the midpole of the right kidney, and 1.5 cm posteriorly in the lower pole of the left kidney. Stomach and bowel: Increased uptake in multiple loops of small bowel and in the left colon with no corresponding CT abnormality is benign. Status post gastric bypass surgery. No abnormal dilatation of the bowel. Intraperitoneal and retroperitoneal spaces: No abnormal uptake. No ascites. Bladder: Normal physiologic uptake. Reproductive: No abnormal uptake. The uterus is absent post surgically. Vasculature: No abnormal uptake. No aortic aneurysm. Lymph nodes: No FDG avid lymphadenopathy in the neck, chest, abdomen, pelvis, and extremities. Mildly enlarged periportal lymph nodes are not FDG avid with low-grade uptake of 2.8 SUV. Anterior-posterior diameter of the portacaval lymph node on series 202, image 148 measures 1.7 cm increased from 1 cm in 2020. Borderline prominent in size mediastinal and bilateral hilar lymph nodes are not FDG avid and not significantly changed since prior exam of 2020. Skeleton: Increased synovial uptake in the shoulders is suggestive of benign finding. Status post sternotomy. Status post bilateral hip replacement. Old fractures in the left ribs 4-6. Grade 1 degenerative anterolisthesis of L5. Soft tissues: No abnormal uptake in the visualized head, neck, chest, abdomen, pelvis, and extremities. PET/PET skull to thigh SUBS [id number] IMPRESSION: No abnormal radiotracer uptake concerning for malignancy. Mild splenomegaly. Mildly enlarged periportal lymph nodes are not FDG avid.
== END 2025-01-04 23:59 | disposition home or self-care (01) ==
LOC: RAD 09:54 → ONCMED 12-09 09:43
PROVIDERS: PCP Family Medicine; Visit Provider Internal Medicine Medical Oncology
DX: C83.09 Small cell B-cell lymphoma, extranodal and solid organ sites (principal); R16.1 Splenomegaly, not elsewhere classified
CPT/HCPCS: 78815; A9552

== ENCOUNTER → 2024-12-11 15:13 | Outpatient (BNVA) | payer MEDICARE, OTHER, SELFPAY | PROVIDERS: PCP Family Medicine; Visit Provider Nurse Practitioner Family | DX: Q24.9 Congenital malformation of heart, unspecified (principal); I50.23 Acute on chronic systolic (congestive) heart failure; I48.0 Paroxysmal atrial fibrillation; Z98.890 Other specified postprocedural states; E78.5 Hyperlipidemia, unspecified; N18.31 Chronic kidney disease, stage 3a | CPT/HCPCS: 99213 ==

== ENCOUNTER 2024-12-13 06:27 | Day surgery (SDC) | payer MEDICARE, OTHER, SELFPAY ==
[2024-12-13] VITALS (10 sets, daily range): BP systolic 104–139; BP diastolic 43–72; PULSE 67–98; RESP 16–23; TEMP 36.1–36.5; O2SAT 92–100; BMI 31.5
[2024-12-13] MEDS: sodium chloride 0.9% 1,000 ML 30 ML IV (06:45)
[2024-12-13] MEDS: gabapentin 300 mg Capsule PO (07:10)
--- NOTE | 2024-12-13 07:34 | W.PM.OPSUD ---
Surgery/Procedure H&P Update DATE OF PROCEDURE: December 13, 2024 DATE H&P PERFORMED: 12/02/24 H&P UPDATE INFORMATION: I have reviewed H&P completed within last 30 days, I have examined patient prior to procedure, No changes to prior documentation and Risks and benefits of the procedure reviewed PLANNED PROCEDURE: Operation Date: 12/13/24 08:00 Proposed Procedures p Open reduction internal fixation right distal fibula(Right) - Deric Reyes DPM
--- NOTE | 2024-12-13 07:35 | PM.OP ---
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 Procedure done: Open reduction internal fixation right distal fibula. CPT code 23392 Implants: [place] 3 mm cannulated screw partially-threaded headless 18 mm in length [place] anatomic fibular plate 3.5 mm locking screws 2-0 Vicryl 3-0 Vicryl Skin carlin Specimens removed/disposition: None Pathology: None Surgeon: Deric Reyes DPM Lap Cutter: Marciano Estimated blood loss: 5 mL 37 IV fluids: See intraoperative documentation Urine output: None Complications: None Findings: Fibrous nonunion right distal fibula Brief History: X-ray right ankle 3 views taken 10/15/2024 shows lack of bony callus formation and lack of osseous healing at the right distal fibular fracture, fracture is nondisplaced, congruent ankle mortise appreciated. 5 months conservative care for nondisplaced fracture right distal fibula continues to be symptomatic has had a month of bone stimulator, continues to be a nonunion that is symptomatic and affects her quality of everyday life, is unable to stand for any extended period of time or walk to the grocery store without pain. Would like to discuss surgical options. I reviewed at length with the patient, the risks, potential complications, benefits, alternatives, expectations, and typical outcomes associated with the surgery. The risks and potential complications were explained in detail, including but not limited to infection, wound dehiscence or soft tissue complications, bleeding and hematoma, chronic edema, neuritis or nerve damage producing numbness or chronic pain, CRPS, failure to relieve pain or worsening pain, thick / painful / unsightly scar, limited motion / stiffness, malposition, delayed union, malunion, or nonunion, fracture, reaction to implants, anesthetic complications, venous thromboembolism, and deformity recurrence. I discussed the notion of no regrets with the patient as it pertains to complications and outcomes. The patient seemed to understand the nature of the proposed care and required convalescence. They asked appropriate questions, answered to their satisfaction. They are aware no guarantees can be made as to a satisfactory outcome and they understand there may be other possible unforeseen complications or outcomes not listed here that will be treated accordingly if they arise. There were no written or implied guarantees given to the patient. They gave informed consent to proceed. Procedure: Under mild sedation the patient was brought to the operating room and remained on the gurney in supine position. A timeout was performed. Anesthesia was then administered by the anesthesia service. Popliteal block to the right lower extremity administered per anesthesia service. Well-padded pneumatic tourniquet applied to the right high calf. The right lower extremity was scrubbed, prepped and draped utilizing normal aseptic technique. Right foot and ankle were exanguinated with an Esmarch bandage and tourniquet inflated to 250 mmHg. Tissue was directed to the right lateral ankle or directly over the lateral malleolus a linear longitudinal incision was made approximately 10 cm in length through skin with a 15 blade with dissection carried down through subcutaneous tissues to the layer periosteum utilizing a combination of sharp and blunt technique. Care was taken to retract and preserve neurovascular and tendinous structures. All bleeders were ligated and cauterized as necessary. Periosteal incision was made and fracture site was observed and noted to have fibrous nonunion this was curettaged down to healthy bleeding bone at the fracture followed by reduction with fibula pulling out the length the rotated and reduction of angular deformity this was then fixated utilizing standard AO technique with a 3 mm partially-threaded headless screw utilizing lag technique across the fracture for interfrag fixation with excellent bony apposition and compression noted followed by fixation of a anatomic fibular plate laterally with 3.5 mm locking screws, smooth range of motion appreciated intraoperatively without crepitus, intraoperative C arm in the AP oblique and lateral view demonstrated congruent ankle mortise with anatomic reduction of the fibula and hardware noted to have excellent placement without violation of the ankle mortise. The incision was irrigated with copious amounts of sterile saline solution and closed in a layered fashion. Periosteum reapproximated with 2-0 Vicryl, subcutaneous tissue reapproximated with 3-0 Vicryl and skin with carlin. The incision was dressed with Xeroform, 4 x 4's, Kerlix and Dung wrap followed by application of a cam boot to the right lower extremity. The tourniquet was deflated and a prompt hyperemic response is noted to the distal digits of the right foot. Patient tolerated the procedure and anesthesia well and was transferred to the PACU with vital signs stable and vascular status intact. Following a period of postoperative monitoring she will be discharged home without home care instructions and scheduled follow-up.
--- NOTE | 2024-12-13 07:49 | ANES.PREANE2 ---
Pre-Anesthetic Assessment Height/Weight: Height 1.78 m Weight 99.79 kg Temp Pulse Resp BP Pulse Ox O2 Del Method 97.5 F L 67 17 139/72 97 Room Air 12/13/24 06:58 12/13/24 06:58 12/13/24 06:58 12/13/24 06:58 12/13/24 06:58 12/13/24 06:58 Operation Date: 12/13/24 08:00 Proposed Procedures p Open reduction internal fixation right distal fibula(Right) - Deric Reyes, DPM Was Beta Fidel taken within 24 hours: Yes Last intake: Intake Last Liquid Date 12/12/24 Last Liquid Time 23:00 Last Solid Date 12/12/24 Last Solid Time 20:00 Social No alcohol and No tobacco Exam oriented x 3, clear to auscultation bilaterally and regular rate & rhythm (3/6 holosystolic murmur apical) Airway Submandibular: within normal limits Cervical ROM: within normal limits Mallampati: Class I Pulmonary Sleep Apnea CV/HEM Atrial Fibrillation, Stable Angina, Congestive Heart Failure and Hypertension anomalous coronary circulation s/p repair Chronic Renal Insufficiency Anesthetic Plan ASA status: 3 Anesthesia: General and Regional (specify below) (consented for popliteal block) Medications/Allergies Home Medications ?Medication ?Instructions ?Recorded ?Confirmed ?Last Taken ?Type aspirin 81 mg tablet,delayed 81 mg PO DAILY 08/09/19 12/12/24 12/12/24 19:00 History release (Adult Low Dose Aspirin) nitroglycerin 0.4 mg sublingual 0.4 mg sublingual Q5M PRN Chest 08/09/19 12/12/24 12/12/24 19:00 History tablet (Nitrostat) Pain multivitamin with minerals 1 tab PO DAILY 01/13/22 12/12/24 12/12/24 19:00 History metoprolol tartrate 25 mg tablet 25 mg PO BID 07/12/22 12/12/24 12/13/24 05:30 History furosemide 40 mg tablet 40 mg PO QAM 3 months #90 tabs 07/15/24 12/12/24 12/12/24 19:00 Rx CAM BOOT #1 ea 07/16/24 12/11/24 Unknown Rx ASO #1 ea 08/26/24 12/11/24 Unknown Rx omeprazole 20 mg capsule,delayed 20 mg PO DAILY #90 caps 09/09/24 12/12/24 12/13/24 05:30 Rx release bone stimulator #1 ea 10/15/24 12/11/24 Unknown Rx doxepin 75 mg capsule 75 mg PO DAILY #90 caps 10/24/24 12/12/24 12/12/24 19:00 Rx hydrocodone 10 mg-acetaminophen 1 tab PO Q6H PRN pain 7 days #28 12/13/24 Unknown Rx 325 mg tablet tabs Allergies Allergy/AdvReac Type Severity Reaction Status Date / Time ibuprofen Allergy Severe ALGY-Hives Verified 12/13/24 06:55 sulfamethoxazole (From Allergy Severe ALGY-Swell Verified 12/13/24 06:55 Bactrim) Lip/Tongue/Throat trimethoprim (From Bactrim) Allergy Severe ALGY-Swell Verified 12/13/24 06:55 Lip/Tongue/Throat PFSH Anesthesia Medical History Nonalcoholic fatty liver Bilateral shoulder pain Ascending aorta dilation Complex congenital heart defect Menopausal state Artificial menopause state 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 Chronic neck pain with normal neurological examination Bilateral hand pain Atrial fibrillation 2021 converted to NSR & normal Response rate; hx of 5-6 cardioversions and 3 ablations; Dr. Amaya EPS at [facility]; hx of Maze procedure; on asa 81 Hilar lymphadenopathy Dyslipidemia cannot tolerate statins Insomnia DHARA on CPAP 02/07/2020 CPAP setting optimal 15 cm' she cannot tolerate CPAP so not using Implantable loop recorder present CKD (chronic kidney disease) stage 3, GFR 30-59 ml/min Chronic rhinosinusitis RLS (restless legs syndrome) Coronary arterio-cameral fistula Diastolic heart failure EF 45% ECHO 2024 Plantar fasciitis Surgical History Bariatric surgery status Hx of cholecystectomy Hx of BSO (bilateral salpingo-oophorectomy) done because of benign cysts Hx of hysterectomy done for fibroids History of Estefania-en-Y gastric bypass Hx of sinus surgery 3 X Hx of heart surgery had cardiothoracic surgery--not CABG; it was for congenital defect [place] White Syndrome; done age 55 S/P ablation of atrial fibrillation hx of cardioverstions, ablations, maze procedure History of bilateral hip replacements History of bilateral knee replacement Family History Mother CAD (coronary artery disease) Hypertension Father CAD (coronary artery disease) Cancer oral Hyperlipidemia Hypertension Grandmother Diabetes Hypertension Stroke Grandfather Hypertension Other Myocardial infarct, old Denies family history of Clotting disorder Dementia Chronic kidney disease (CKD) Anesthesia complication Bleeding disorder Lung disease Social History Smoking and tobacco/nicotine status: never used tobacco/nicotine Alcohol intake: never Substance/Drug Use: never Caregiver/support person: No Lives independently: Yes Household members: spouse Marital status: Number of children: 4 Highest education level completed: Some College, No Degree service: No Current occupational status: retired 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
[2024-12-13] MEDS: ceFAZolin 2,000 mg SDV 2000 MG IVP (07:54)
--- NOTE | 2024-12-13 08:47 | ANES.PROC ---
Anesthesia Procedures Procedure/Date: 12/13/24 Nerve Block ^: Nerve Block 2: Main Anesthesia: general anesthesia Time Out Performed: Yes Consent: requested by attending/covering physician, from patient, risks and benefits reviewed and patient agrees to proceed Nerve block location: popliteal Anesthesia monitors applied: pulse oximetry, EKG, BP cuff and oxygen Nerve block position: supine Anesthetic Used: ropivicaine 0.5% Amount of anesthesia used (mL): 20 Ultrasound used to: recognize landmarks Nerve Stimulator Used?: No Injection: neg aspiration of heme Patient Tolerated Procedure: well and no complications Additional Comments: performed in OR under [place]
--- NOTE | 2024-12-13 12:37 | ANES.PREANE2 ---
Pre-Anesthetic Assessment Height/Weight: Height 1.78 m Weight 99.79 kg Temp Pulse Resp BP Pulse Ox O2 Del Method O2 Flow Rate 97.7 F 71 18 104/55 98 Room Air 6 12/13/24 09:47 12/13/24 10:01 12/13/24 10:01 12/13/24 10:01 12/13/24 10:01 12/13/24 10:01 12/13/24 09:22 Operation Date: 12/13/24 08:00 Proposed Procedures p Open reduction internal fixation right distal fibula(Right) - Deric Reyes, [place] Last intake: Intake Last Liquid Date 12/12/24 Last Liquid Time 23:00 Last Solid Date 12/12/24 Last Solid Time 20:00 Medications/Allergies Home Medications ?Medication ?Instructions ?Recorded ?Confirmed ?Last Taken ?Type aspirin 81 mg tablet,delayed 81 mg PO DAILY 08/09/19 12/12/24 12/12/24 19:00 History release (Adult Low Dose Aspirin) nitroglycerin 0.4 mg sublingual 0.4 mg sublingual Q5M PRN Chest 08/09/19 12/12/24 12/12/24 19:00 History tablet (Nitrostat) Pain multivitamin with minerals 1 tab PO DAILY 01/13/22 12/12/24 12/12/24 19:00 History metoprolol tartrate 25 mg tablet 25 mg PO BID 07/12/22 12/12/24 12/13/24 05:30 History furosemide 40 mg tablet 40 mg PO QAM 3 months #90 tabs 07/15/24 12/12/24 12/12/24 19:00 Rx CAM BOOT #1 ea 07/16/24 12/11/24 Unknown Rx ASO #1 ea 08/26/24 12/11/24 Unknown Rx omeprazole 20 mg capsule,delayed 20 mg PO DAILY #90 caps 09/09/24 12/12/24 12/13/24 05:30 Rx release bone stimulator #1 ea 10/15/24 12/11/24 Unknown Rx doxepin 75 mg capsule 75 mg PO DAILY #90 caps 10/24/24 12/12/24 12/12/24 19:00 Rx hydrocodone 10 mg-acetaminophen 1 tab PO Q6H PRN pain 7 days #28 12/13/24 Unknown Rx 325 mg tablet tabs Allergies Allergy/AdvReac Type Severity Reaction Status Date / Time ibuprofen Allergy Severe ALGY-Hives Verified 12/13/24 06:55 sulfamethoxazole (From Allergy Severe ALGY-Swell Verified 12/13/24 06:55 Bactrim) Lip/Tongue/Throat trimethoprim (From Bactrim) Allergy Severe ALGY-Swell Verified 12/13/24 06:55 Lip/Tongue/Throat PFSH Anesthesia Medical History Nonalcoholic fatty liver Bilateral shoulder pain Ascending aorta dilation Complex congenital heart defect Menopausal state Artificial menopause state 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 Chronic neck pain with normal neurological examination Bilateral hand pain Atrial fibrillation 2021 converted to NSR & normal Response rate; hx of 5-6 cardioversions and 3 ablations; Dr. Amaya EPS at [facility]; hx of Maze procedure; on asa 81 Hilar lymphadenopathy Dyslipidemia cannot tolerate statins Insomnia DHARA on CPAP 02/07/2020 CPAP setting optimal 15 cm' she cannot tolerate CPAP so not using Implantable loop recorder present CKD (chronic kidney disease) stage 3, GFR 30-59 ml/min Chronic rhinosinusitis RLS (restless legs syndrome) Coronary arterio-cameral fistula Diastolic heart failure EF 45% ECHO 2024 Plantar fasciitis Surgical History Bariatric surgery status Hx of cholecystectomy Hx of BSO (bilateral salpingo-oophorectomy) done because of benign cysts Hx of hysterectomy done for fibroids History of Estefania-en-Y gastric bypass Hx of sinus surgery 3 X Hx of heart surgery had cardiothoracic surgery--not CABG; it was for congenital defect [place] White Syndrome; done age 55 S/P ablation of atrial fibrillation hx of cardioverstions, ablations, maze procedure History of bilateral hip replacements History of bilateral knee replacement Family History Mother CAD (coronary artery disease) Hypertension Father CAD (coronary artery disease) Cancer oral Hyperlipidemia Hypertension Grandmother Diabetes Hypertension Stroke Grandfather Hypertension Other Myocardial infarct, old Denies family history of Clotting disorder Dementia Chronic kidney disease (CKD) Anesthesia complication Bleeding disorder Lung disease Social History Smoking and tobacco/nicotine status: never used tobacco/nicotine Alcohol intake: never Substance/Drug Use: never Caregiver/support person: No Lives independently: Yes Household members: spouse Marital status: Number of children: 4 Highest education level completed: Some College, No Degree service: No Current occupational status: retired 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
--- NOTE | 2024-12-13 12:37 | ANE.PACU2 ---
Inpatient post-anesthesia follow up: Airway intact: Yes Vital signs: Temperature 97.7 F Pulse Rate 71 Respiratory Rate 18 Blood Pressure 104/55 Pulse Oximetry 98 Oxygen Delivery Me thod Room Air Oxygen Flow Rate 6 Fraction of Inspir ed Oxygen Hydration adequate: Yes Nausea and vomiting: No Pain level: controlled Mental status: Baseline
== END 2024-12-13 10:31 | disposition home or self-care (01) ==
PROVIDERS: PCP Family Medicine; Visit Provider Podiatrist Foot & Ankle Surgery
PROC: (CPT 27792; principal; 2024-12-13 07:50)
DX: S82.831K Other fracture of upper and lower end of right fibula, subsequent encounter for closed fracture with nonunion (principal); I13.0 Hypertensive heart and chronic kidney disease with heart failure and stage 1 through stage 4 chronic kidney disease, or unspecified chronic kidney disease; I50.32 Chronic diastolic (congestive) heart failure; N18.30 Chronic kidney disease, stage 3 unspecified; I48.91 Unspecified atrial fibrillation; E78.5 Hyperlipidemia, unspecified; G47.33 Obstructive sleep apnea (adult) (pediatric); X58.XXXD Exposure to other specified factors, subsequent encounter; Z98.84 Bariatric surgery status; Z96.643 Presence of artificial hip joint, bilateral; Z96.653 Presence of artificial knee joint, bilateral; Z79.82 Long term (current) use of aspirin; Z79.899 Other long term (current) drug therapy; Z88.2 Allergy status to sulfonamides; Z88.8 Allergy status to other drugs, medicaments and biological substances
CPT/HCPCS: 27792; C1713; C1762; J0131; J0690; J1100; J2250; J2371; J2405; J2704; J2795; J3010; J3490; J7030; J9999; P9045

== ENCOUNTER 2024-12-20 14:52 | Outpatient (CLI) | payer MEDICARE, OTHER, SELFPAY ==
--- NOTE | 2024-12-20 15:30 | USCV_ITS ---
Vilma Charlton Age: 74 Gender: F : 1950 Exam Date: 12/20/2024 15:18 Ordering Phys: Deric Reyes DPM Technologist: BRYN [place] [facility] [place]: one week post op swelling HISTORY: Lower extremity swelling. one week post op PROCEDURES: Venous duplex imaging was performed in only the right lower extremity. FINDINGS: Evidence of acute occlusive deep vein thrombosis in the right common femoral and superficial veins with abnormal flow dynamics. CONCLUSIONS Acute right lower extremity deep venous thrombosis, CFVand SVF. Report called to Dr. Reyes, directed patient to ED. Dr. Chyna Kingston DO (Electronically Signed) Final Date: 20 Dec 2024 16:06 S
[2024-12-20 15:44] LABS: Anion Gap 12.8 (5-19); Blood Urea Nitrogen 32 mg/dL (8-23); Carbon Dioxide 28 mmol/L (22-29); Chloride 103 mmol/L (98-107); Glucose 131 mg/dL (65-115); Osmolality Calculated 299 mOsm/kg (285-295); Potassium 3.8 mmol/L (3.5-5.1); Sodium 140 mmol/L (136-145)
== END 2024-12-20 14:53 | disposition home or self-care (01) ==
LOC: RAD 14:53
PROVIDERS: Absent Provider Nurse Practitioner Family; PCP Family Medicine; Visit Provider Podiatrist Foot & Ankle Surgery
DX: M79.604 Pain in right leg (principal); Z98.890 Other specified postprocedural states; I50.32 Chronic diastolic (congestive) heart failure; I82.411 Acute embolism and thrombosis of right femoral vein; I82.491 Acute embolism and thrombosis of other specified deep vein of right lower extremity
CPT/HCPCS: 36415; 80048; 93971

== ENCOUNTER 2024-12-20 15:59 | Emergency (ER) | payer MEDICARE, OTHER, SELFPAY ==
[2024-12-20 16:33] VITALS: BP 118/69; PULSE 76; RESP 18; TEMP 36.4; O2SAT 97; BMI 30.8
[2024-12-20 17:12] VITALS: BP 125/66; PULSE 75; RESP 16; O2SAT 94
[2024-12-20] MEDS: enoxaparin 100 mg/mL Syringe SUBCUT (17:25)
--- NOTE | 2024-12-20 17:31 | ED_ITS ---
HPI - Extremity Problem General: Chief complaint: Extremity Problem,Nontraumatic Stated complaint: rt upper thigh clot (sent by imaging) Time Seen by Provider: 12/20/24 17:02 History of Present Illness: Vilma Charlton, a patient with a history of atrial fibrillation, presents to the emergency department with concerns of a blood clot. She reports pain, heat, and significant discomfort in her leg, specifically located on the front rather than the back of the leg. The patient describes the pain as hurting like the dickens. Ms. Charlton notes that the location of her symptoms has been confusing for healthcare providers, as it is not in the typical location for a deep vein thr ombosis (DVT). She mentions having a recent broken bone, which she understands is a risk factor for developing a blood clot. The patient denies any chest pain or shortness of breath. Regarding her medical history, Ms. Charlton reports a history of atrial fibrillation, for which she previously took Eliquis. She states that she has undergone three ablations, which have successfully controlled her atrial fibrillation, and she has not been on anticoagulation for a couple of years. Related Data Home Medications ?Medication ?Instructions ?Recorded ?Confirmed aspirin 81 mg tablet,delayed 81 mg PO DAILY 08/09/19 0 12/20/24 release (Adult Low Dose Aspirin) metoprolol tartrate 25 mg tablet 25 mg PO BID 07/12/22 12/20/24 Previous Rx's ?Medication ?Instructions ?Recorded furosemide 40 mg tablet 40 mg PO QAM 3 months #90 ta bs 07/15/24 omeprazole 20 mg capsule,delayed 20 mg PO DAILY #90 ca ps 09/09/24 release doxepin 75 mg capsule 75 mg PO DAILY #90 caps 10/06 apixaban 5 mg (74 tabs) tablets in See Rx Instructions PO .COMPLEX 12/20/24 a dose pack (Eliquis DVT-PE Treat #74 ea 30D Start) hydrocodone 10 mg-acetaminophen 1 tab PO Q6H 7 days #2 8 tabs 12/20/24 325 mg tablet Allergies Allergy/AdvReac Type Severity Reaction Status Date / Time ibuprofen Allergy Severe ALGY-Hives Verified 12/20/24 16:37 sulfamethoxazole (From Allergy Severe ALGY-Swell Verified 12/20/24 16:37 Bactrim) Lip/Tongue/Throat trimethoprim (From Bactrim) Allergy Severe ALGY-Swell Verified 12/20/24 16:37 Lip/Tongue/Throat Review of Systems General: Reports: 10 or more systems reviewed and unremarkable except in HPI and below PFSH ED PFSH: Medical History Nonalcoholic fatty liver Bilateral shoulder pain Ascending aorta dilation Complex congenital heart defect Menopausal state Artificial menopause state 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 Chronic neck pain with normal neurological examination Bilateral hand pain Atrial fibrillation 2021 converted to NSR & normal Response rate; hx of 5-6 cardioversions and 3 ablations; Dr. Amaya EPS at [facility]; hx of Maze procedure; on asa 81 Hilar lymphadenopathy Dyslipidemia cannot tolerate statins Insomnia DHARA on CPAP 02/07/2020 CPAP setting optimal 15 cm' she cannot tolerate CPAP so not using Implantable loop recorder present CKD (chronic kidney disease) stage 3, GFR 30-59 ml/min Chronic rhinosinusitis RLS (restless legs syndrome) Coronary arterio-cameral fistula Diastolic heart failure EF 45% ECHO 2024 Plantar fasciitis Surgical History Bariatric surgery status Hx of cholecystectomy Hx of BSO (bilateral salpingo-oophorectomy) done because of benign cysts Hx of hysterectomy done for fibroids History of Estefania-en-Y gastric bypass Hx of sinus surgery 3 X Hx of heart surgery had cardiothoracic surgery--not CABG; it was for congenital defect [place] White Syndrome; done age 55 S/P ablation of atrial fibrillation hx of cardioverstions, ablations, maze procedure History of bilateral hip replacements History of bilateral knee replacement Family History Mother CAD (coronary artery disease) Hypertension Father CAD (coronary artery disease) Cancer oral Hyperlipidemia Hypertension Grandmother Diabetes Hypertension Stroke Grandfather Hypertension Other Myocardial infarct, old Denies family history of Clotting disorder Dementia Chronic kidney disease (CKD) Anesthesia complication Bleeding disorder Lung disease Social History Smoking and tobacco/nicotine status: never used tobacco/nicotine Alcohol intake: never Substance/Drug Use: never Caregiver/support person: No Lives independently: Yes Household members: spouse Marital status: Number of children: 4 Highest education level completed: Some College, No Degree service: No Current occupational status: retired 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 [employer] Do you think of yourself as: Straight/Heterosexual Current gender identity: Female Isabel/Church: [employer] [place] Special isabel needs: No Agree to transfusion: Yes Physical Exam Const: COMMON NORMALS: no acute distress, patient oriented x3, healthy appearing, alert and well nourished HENMT: COMMON NORMALS: normocephalic HEAD & SCALP: normocephalic Eye: COMMON NORMALS: EOMs intact bilaterally Neck/C-Spine: COMMON NORMALS: full ROM and supple Resp: COMMON NORMALS: normal respiratory effort, No retractions and clear to auscultation bilaterally AUSCULTATION: clear to auscultation bilaterally Cardio: COMMON NORMALS: regular rate, regular rhythm, No gallops present (Cardio) and No murmurs present (Cardio) RATE: regular rate RHYTHM: regular rhythm GI: COMMON NORMALS: Soft to palpation and non-tender PALPATION: Yes Soft to palpation Extremity: GENERAL: Yes normal exam except as noted and Yes other findings (Warmth, erythema, tenderness to palpation on the anterior leg) Neuro: COMMON NORMALS: patient oriented x3 SENSORIUM/ORIENTATION: Yes alert Course Vital Signs: Vital signs: Vital Signs Temperature 97.6 F 12/20/24 16:33 Pulse Rate 75 12/20/24 17:12 Respiratory Rate 16 12/20/24 17:12 Blood Pressure 125/66 12/20/24 17:12 Pulse Oximetry 94 12/20/24 17:12 Oxygen Delivery Me thod Room Air 12/20/24 17:12 MDM - Extremity (Nontraumatic) Medical Decision Making 74-year-old female presents to the emergency department for evaluation of DVT. Deep Vein Thrombosis (DVT): Patient presents with pain, heat, and tenderness in an atypical location for DVT, on the front of the leg rather than the back. Recent bone fracture is noted as a risk factor for DVT. Vital signs are stable with slightly elevated blood pressure, normal oxygen saturation, and no tachycardia. No chest pain or shortness of breath reported, making pulmonary embolism (PE) unlikely at this time. Patient has a history of atrial fibrillation, which was previously treated with Eliquis and ablations. Diagnosis of DVT has been confirmed through Ultrasound. - Administer Lovenox (enoxaparin) in the emergency department - Initiate Eliquis (apixaban) oral anticoagulation therapy tomorrow morning - Prescription to be called to [facility] for pickup before 6 PM - Educate patient on signs of bleeding to monitor - Discharge patient from the emergency department - No chest X-ray or CT angiogram indicated due to lack of respiratory symptoms and low suspicion for PE Differential Diagnosis Likely cellulitis, superficial thrombophlebitis, lower extremity edema and deep vein thrombosis of lower extremity No radiology studies performed this visit (Previous us results: Acute right lowe r extremity deep venous thrombosis, CFVand SVF. ) Discharge Plan Discharge Patient Disposition: Home Clinical Impression: Deep vein thrombosis of lower extremity Qualifiers: Affected thrombotic vein of extremity: femoral Chronicity: acute Laterality: right Qualified Code(s): I82.411 - Acute embolism and thrombosis of right femoral vein Condition: Stable Prescriptions: New Eliquis DVT-PE Treat 30D Start 5 mg (74 tabs) tablets,dose pack See Rx Instructions .ROUTE .COMPLEX Qty: 74 0RF Rx Instructions: orally per package directions No Action aspirin [Adult Low Dose Aspirin] 81 mg tablet,delayed release (DR/EC) 81 mg PO DAILY hydrocodone-acetaminophen 10-325 mg tablet 1 tab PO Q6H 7 Days Qty: 28 0RF metoprolol tartrate 25 mg tablet 25 mg PO BID furosemide 40 mg tablet 40 mg PO QAM 90 Days Qty: 90 3RF omeprazole 20 mg capsule,delayed release(DR/EC) 20 mg PO DAILY Qty: 90 1RF doxepin 75 mg capsule 75 mg PO DAILY Qty: 90 1RF Discharge Orders: Discharge ED (Routine); Ordered 12/20/24 Ordered By: Gary Law Referrals: Charity Blake MD [Primary Care Provider, Family Practice] Discharge Diet: Advance as tolerated Discharge Activity: Increase activity as tolerated Patient Instructions: Apixaban (By mouth) (Eliquis), Deep Vein Thrombosis (ED), Opioid Safety, Pain Management Activity Restrictions/Additional Instructions: Please return to the emergency department with any new or worsening symptoms. Please start taking Eliquis in the morning. Follow-up with your primary care doctor as you will need this treatment for approximately 3 months and will need additional medication for the treatment period. Print Language: Gambian Coding Level of Care Code ED Product Management Intern for Esequiel Portillo
[2024-12-20 17:33] VITALS: BP 130/85; PULSE 84; O2SAT 96
== END 2024-12-20 17:34 | disposition home or self-care (01) ==
PROVIDERS: Emergency Provider General Practice; PCP Family Medicine
DX: I82.411 Acute embolism and thrombosis of right femoral vein (principal); Z79.82 Long term (current) use of aspirin; E78.5 Hyperlipidemia, unspecified; N18.30 Chronic kidney disease, stage 3 unspecified; I50.30 Unspecified diastolic (congestive) heart failure
CPT/HCPCS: 96372; 99284; J1650

== ENCOUNTER → 2024-12-26 09:26 | Outpatient (BNVA) | payer MEDICARE, OTHER, SELFPAY | PROVIDERS: PCP Family Medicine; Visit Provider Podiatrist Foot & Ankle Surgery | DX: Z98.890 Other specified postprocedural states (principal); S82.831K Other fracture of upper and lower end of right fibula, subsequent encounter for closed fracture with nonunion; I82.4Z1 Acute embolism and thrombosis of unspecified deep veins of right distal lower extremity; X58.XXXD Exposure to other specified factors, subsequent encounter | CPT/HCPCS: 73610; 99214 ==

== ENCOUNTER → 2025-01-23 14:31 | Outpatient (BNVA) | payer MEDICARE, OTHER, SELFPAY | PROVIDERS: PCP Family Medicine; Visit Provider Podiatrist Foot & Ankle Surgery | DX: Z98.890 Other specified postprocedural states (principal); S82.831K Other fracture of upper and lower end of right fibula, subsequent encounter for closed fracture with nonunion; X58.XXXD Exposure to other specified factors, subsequent encounter | CPT/HCPCS: 73610; 99024 ==

== ENCOUNTER 2025-01-28 12:03 | Oncology outpatient (recurring) (ONCR) | payer MEDICARE, OTHER, SELFPAY ==
[2025-01-28 12:27] LABS: Basophils % 0.5 %; Eosinophils # 0.3 10^3/uL (0.0-0.8); Eosinophils % 4.6 %; Hematocrit 44.5 % (36-47); Lymphocytes # 3.6 10^3/uL (0.8-4.8); Lymphocytes % 48.5 %; Mean Corpuscular HGB Conc 30.6 g/dL (30-55); Mean Corpuscular Hemoglobin 27.8 pg (27-33); Mean Platelet Volume 10.3 fL (7.4-10.4); Monocytes # 0.6 10^3/uL (0.2-0.9); Monocytes % 7.4 %; Neutrophils # 2.89 10^3/uL (1.8-7.7); Neutrophils % 38.7 %; Nucleated Red Blood Cells % 0 %; Platelet Count 143 10^3/cmm (157-399); Red Blood Count 4.89 10^6/uL (3.85-5.65); Red Cell Distribution Width 14.2 % (12.1-15.1); White Blood Count 7.46 10^3/uL (3.29-11.43)
[2025-01-28 12:42] LABS: Anion Gap 14.4 (5-19); Blood Urea Nitrogen 47 mg/dL (8-23); Calcium 8.7 mg/dL (8.5-10.5); Carbon Dioxide 26 mmol/L (22-29); Chloride 105 mmol/L (98-107); Glucose 102 mg/dL (65-115); Osmolality Calculated 304 mOsm/kg (285-295); Potassium 4.4 mmol/L (3.5-5.1); Sodium 141 mmol/L (136-145)
[2025-01-28 12:47] LABS: Slide Review Slide Review Perform
== END 2025-02-03 23:59 | disposition home or self-care (01) ==
PROVIDERS: Internal Medicine; PCP Family Medicine; Visit Provider Internal Medicine Medical Oncology
DX: Q24.9 Congenital malformation of heart, unspecified (principal); I50.32 Chronic diastolic (congestive) heart failure
CPT/HCPCS: 36415; 80048; 85025

== ENCOUNTER → 2025-02-11 12:31 | Outpatient (BNVA) | payer MEDICARE, OTHER, SELFPAY | PROVIDERS: PCP Family Medicine; Visit Provider Internal Medicine | DX: I48.0 Paroxysmal atrial fibrillation (principal); Z79.01 Long term (current) use of anticoagulants; Z79.82 Long term (current) use of aspirin; I50.32 Chronic diastolic (congestive) heart failure; N18.30 Chronic kidney disease, stage 3 unspecified; E78.5 Hyperlipidemia, unspecified; Q24.9 Congenital malformation of heart, unspecified; Z95.818 Presence of other cardiac implants and grafts; Z86.718 Personal history of other venous thrombosis and embolism | CPT/HCPCS: 36415; 80048; 83880; 99214 ==

== ENCOUNTER → 2025-02-20 13:06 | Outpatient (BNVA) | payer MEDICARE, OTHER, SELFPAY | PROVIDERS: PCP Family Medicine; Visit Provider Podiatrist Foot & Ankle Surgery | DX: S82.831K Other fracture of upper and lower end of right fibula, subsequent encounter for closed fracture with nonunion (principal); I82.4Z1 Acute embolism and thrombosis of unspecified deep veins of right distal lower extremity; Z98.890 Other specified postprocedural states; X58.XXXD Exposure to other specified factors, subsequent encounter | CPT/HCPCS: 73610; 99024 ==

== ENCOUNTER 2025-02-24 08:44 | Outpatient (CLI) | payer MEDICARE, OTHER, SELFPAY ==
[2025-02-24 09:38] LABS: Anion Gap 16.5 (5-19); Blood Urea Nitrogen 34 mg/dL (8-23); Calcium 9.1 mg/dL (8.5-10.5); Carbon Dioxide 27 mmol/L (22-29); Chloride 105 mmol/L (98-107); Glucose 103 mg/dL (65-115); NT Pro B Type Natriuretic Pept 1185 pg/mL (0-125); Osmolality Calculated 306 mOsm/kg (285-295); Potassium 4.5 mmol/L (3.5-5.1); Sodium 144 mmol/L (136-145)
== END 2025-02-24 08:45 | disposition home or self-care (01) ==
PROVIDERS: PCP Family Medicine; Visit Provider Internal Medicine
DX: I50.23 Acute on chronic systolic (congestive) heart failure (principal)
CPT/HCPCS: 36415; 80048; 83880

== ENCOUNTER 2025-02-25 12:26 | Oncology outpatient (recurring) (ONCR) | payer MEDICARE, OTHER, SELFPAY ==
--- NOTE | 2025-02-25 12:45 | USCV_ITS ---
Vilma Charlton Age: 74 Gender: F : 1950 Exam Date: 02/25/2025 12:48 Ordering Phys: Deric Reyes DPM Technologist: BRYN Exam Location: [facility] – [place]_ Indication: HISTORY OF DVT-MID DECEMBER HISTORY: DVT. PROCEDURES: Venous duplex imaging was performed in only the right lower extremity. The following venous structures were evaluated: common femoral vein, profunda vein, proximal portion of the greater saphenous vein, superficial femoral vein, and the popliteal vein. In addition, the posterior tibial and peroneal trunk were evaluated. FINDINGS: Evidence of acute partial deep vein thrombosis in the right common femoral vein with abnormal flow dynamics. Lumen is partially patent which is new since the prior exam. No additional Right DVT. CONCLUSIONS Partially occlusive right DVT, CFV. Dr. Chyna Kingston DO (Electronically Signed) Final Date: 25 February 2025 13:36 S
== END 2025-03-06 23:59 | disposition home or self-care (01) ==
LOC: ONCMED 12:27
PROVIDERS: PCP Family Medicine; Visit Provider Internal Medicine Medical Oncology
DX: C83.09 Small cell B-cell lymphoma, extranodal and solid organ sites (principal); R16.1 Splenomegaly, not elsewhere classified; I82.4Z1 Acute embolism and thrombosis of unspecified deep veins of right distal lower extremity
CPT/HCPCS: 93971

== ENCOUNTER 2025-07-24 13:54 | Oncology outpatient (recurring) (ONCR) | payer MEDICARE, OTHER, SELFPAY ==
[2025-07-24 14:14] LABS: Hematocrit 47.7 % (36-47); Hemoglobin 14.30 g/dL (11.27-16.99); Mean Corpuscular HGB Conc 30.0 g/dL (30-55); Mean Corpuscular Hemoglobin 26.1 pg (27-33); Mean Corpuscular Volume 87.0 fl (85-98); Nucleated Red Blood Cells % 0 %; Platelet Count 131 10^3/cmm (157-399); Red Blood Count 5.48 10^6/uL (3.85-5.65); White Blood Count 7.10 10^3/uL (3.29-11.43)
[2025-07-24 14:34] LABS: Alanine Aminotransferase 17 U/L (0-33); Albumin Level 4.0 g/dL (3.5-5.2); Alkaline Phosphatase 93 U/L (35-105); Anion Gap 14.5 (5-19); Aspartate Amino Transferase 30 U/L (0-32); Blood Urea Nitrogen 35 mg/dL (8-23); Calcium 9.1 mg/dL (8.5-10.5); Carbon Dioxide 28 mmol/L (22-29); Chloride 108 mmol/L (98-107); Globulin 2.2 g/dL (1.3-4.6); Glucose 94 mg/dL (65-115); Osmolality Calculated 310 mOsm/kg (285-295); Potassium 4.5 mmol/L (3.5-5.1); Sodium 146 mmol/L (136-145); Total Protein 6.2 g/dL (6.6-8.7)
[2025-07-24 14:41] LABS: Slide Review Slide Review Perform
== END 2025-08-06 23:59 | disposition home or self-care (01) ==
PROVIDERS: PCP Family Medicine; Visit Provider Internal Medicine
DX: Z08 Encounter for follow-up examination after completed treatment for malignant neoplasm (principal); Z85.72 Personal history of non-Hodgkin lymphomas; D69.6 Thrombocytopenia, unspecified; N18.9 Chronic kidney disease, unspecified
CPT/HCPCS: 36415; 80053; 85025; 99213

== ENCOUNTER → 2025-07-29 11:29 | Outpatient (BNVA) | payer MEDICARE, OTHER, SELFPAY | PROVIDERS: PCP Family Medicine; Visit Provider Podiatrist Foot & Ankle Surgery | DX: M20.42 Other hammer toe(s) (acquired), left foot (principal); M21.41 Flat foot [pes planus] (acquired), right foot; L84 Corns and callosities | CPT/HCPCS: 28010; 28011; J9999 ==

== ENCOUNTER → 2025-08-05 10:30 | Outpatient (BNVA) | payer MEDICARE, OTHER, SELFPAY | PROVIDERS: PCP Family Medicine; Visit Provider Podiatrist Foot & Ankle Surgery | DX: M20.41 Other hammer toe(s) (acquired), right foot (principal); M21.41 Flat foot [pes planus] (acquired), right foot; L84 Corns and callosities; M20.42 Other hammer toe(s) (acquired), left foot | CPT/HCPCS: 28010; 28011 ==